=== PATIENT | male | born 1965 | race Caucasian/White ===

== ENCOUNTER 2022-07-30 09:06 | Emergency (ER) | payer OTHER, SELFPAY ==
[2022-07-30] VITALS (7 sets, daily range): BP systolic 152–187; BP diastolic 95–107; PULSE 60–80; RESP 13–23; TEMP 36.4; O2SAT 98–100
--- NOTE | ~2022-07-30 | CT_ITS ---
EXAMINATION: CTA chest PE protocol DATE: 07/30/2022 11:46 INDICATION: Left chest pain. TECHNIQUE: Computed tomography angiography (CTA) of the chest was performed with 100 mL Omnipaque-350 intravenous contrast timed to evaluate the pulmonary arteries. Coronal maximum intensity projection 3D-reconstructions were created by the technologist. Automated exposure control and iterative reconst ruction technique were employed. The dose-length product was 398.36 mGy-cm. COMPARISON: Chest 2 views 07/30/2022 FINDINGS: There is mild scarring at the lung apices. There is minimal atelectasis bilaterally. A calc ified right lung nodule is consistent with old granulomatous disease. No pleural effusion. The heart size is normal. No pericardial effusion. There is no pulmonary embolus. There is mild thoracic spondy losis. IMPRESSION: 1. No pulmonary embolus. Reviewed, dictated and finalized at location A. MECHANISM MAKER IMPRESSION: 1. No pulmonary embolus.
--- NOTE | ~2022-07-30 | XR_ITS ---
EXAMINATION: XR chest 2V DATE: 07/30/2022 09:55 INDICATION: Chest pain and dizziness TECHNIQUE: PA and lateral views of the chest are obtained. COMPARISON: None available FINDINGS: The lungs are free of acute opacities. No pleural effusion or pneumothorax. The cardiomedia stinal silhouette is normal. There is mild thoracic spondylosis. IMPRESSION: 1. No acute cardiopulmonary abnormality. Reviewed, dictated and finalized at location A. TRIMMER
--- NOTE | ~2022-07-30 | CT_ITS ---
EXAMINATION: CT brain wo con DATE: 07/30/2022 11:41 INDICATION: Dizziness. TECHNIQUE: Computed tomography (CT) of the head was performed without intravenous contrast. The mA wa s adjusted according to patient size. Iterative reconstruction technique was employed. The dose-lengt h product was 605.33 mGy-cm. COMPARISON: None FINDINGS: There is no intracranial hemorrhage, acute infarction, or abnormal intracranial mass lesion . The ventricles are normal in size. The orbits are normal. There is mild mucosal thickening in the e thmoid sinuses. The mastoid air cells are normal. IMPRESSION: 1. Normal brain. Reviewed, dictated and finalized at location A. ER UP IMPRESSION: 1. Normal brain.
--- NOTE | 2022-07-30 09:12 | ECG_ITS ---
Measurements Intervals [place] Rate: 66 P: 46 AR: 171 QRS: 34 QRSD: 90 T: 56 QT: 394 QTc: 414 Interpretive Statements SINUS RHYTHM POOR R-WAVE PROGRESSION NO PREVIOUS ECG AVAILABLE FOR COMPARISON Electronically Signed On 07-30-2022 13:21:37 STAND GRINDER by Mack Weber M.D.
[2022-07-30 09:32] LABS: Basophils Absolute Auto 0.1 K/mm3 (0.0-0.1); Basophils Percent Auto 0.8 % (0.2-1.2); Eosinophils Percent Auto 0.5 % (0-4.4); Hematocrit 49.6 % (42.0-52.0); Hemoglobin 16.2 g/dL (14.0-18.0); Immature Granulocyte Absolute 0.02 K/mm3 (0.00-0.031); Immature Granulocyte Percent A 0.3 % (0-0.5); Lymphocytes Absolute Auto 1.18 K/mm3 (0.9-3.2); Lymphocytes Percent Auto 16.2 % (18.3-44.2); Mean Corpuscular HGB Conc 32.7 g/dl (32-36); Mean Corpuscular Hemoglobin 30.9 pg (26-34); Mean Corpuscular Volume 94.5 fl (80-100); Mean Platelet Volume 8.5 fl (7.4-10.4); Monocytes Absolute Auto 0.5 K/mm3 (0.1-0.6); Monocytes Percent Auto 7.4 % (2.6-8.5); Neutrophils Absolute Auto 5.5 K/mm3 (1.3-6.7); Neutrophils Percent Auto 74.8 % (45.5-73.1); Platelet Count Result 299 k/mm3 (150-375); Red Blood Count 5.25 M/mm3 (4.6-6.20); Red Cell Distribution Width 12.8 % (11.5-14.5); White Blood Count 7.3 K/mm3 (4.5-10.0)
[2022-07-30 09:41] LABS: Lipase 113 U/L (23-300)
[2022-07-30 09:44] LABS: Prothrombin Time 12.6 Seconds (11.1-14.7)
[2022-07-30 09:45] LABS: Partial Thromboplastin Time 29.1 SECONDS (22.3-36.8)
[2022-07-30 09:47] LABS: Alanine Aminotransferase 18 U/L (6-50); Albumin Level 4.8 g/dL (3.5-5.1); Alkaline Phosphatase 92 U/L (38-126); Anion Gap 7 mmol/L (8-16); Aspartate Amino Transferase 23 U/L (17-59); Bilirubin,Total 0.8 mg/dL (0.2-1.3); Blood Urea Nitrogen 10 mg/dL (9-20); Calcium 9.3 mg/dL (8.4-10.2); Carbon Dioxide 26 mmol/L (22-30); Chloride 102 mmol/L (98-107); Estimated CRCL calculation 79 ml/min; Estimated Glomerular Filt Rate > 60; Glucose 113 mg/dL (65-110); Potassium 3.9 mmol/L (3.4-5.0); Sodium 135 mmol/L (137-145)
--- NOTE | 2022-07-30 09:54 | PC.NURSE ---
Pt in XRAY at this time, radiology will bring to H2 following imaging.
[2022-07-30 09:57] LABS: Troponin I < 0.012 ng/mL (0.000-0.034)
[2022-07-30] MEDS: Please add drug allergy info to patient profile. 1 EACH XX (10:07)
[2022-07-30] MEDS: ASPIRIN 81 MG CHEWABLE TABLET 324 MG PO (10:07)
--- NOTE | 2022-07-30 11:35 | ED.GENADULT ---
HPI - General Adult General Chief complaint: Dizziness Stated complaint: DIZZINESS Time Seen by Provider: 07/30/22 09:25 History of Present Illness HPI narrative: 56-year-old male presented to the emergency department for evaluation of multiple complaints including headache dizziness near syncope and left-sided chest pain. Patient states that he does have a prior history of essential tremor and bipolar disorder. Patient states he has not been taking his meds. 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 Patient denied any diaphoresis or shortness of breath with this. Patient states the symptoms lasted a few hours and resolved. Patient has not had any recurrent chest pain. Patient has had a prior stress test but denies any history of coronary disease. Patient also states he has had multiple near syncopal episodes today Related Data Allergies Allergy/AdvReac Type Severity Reaction Status Date / Time No Known Allergies Allergy Verified 07/30/22 10:06 Review of Systems Review of Systems: CONSTITUTIONAL: Denies fever, chills, or sweats. EYES: Denies visual changes, redness, or discharge. ENT: Denies rhinorrhea, congestion, sore throat, or otalgia. CARDIOVASCULAR: See HPI RESPIRATORY: Denies cough or dyspnea. GASTROINTESTINAL: Denies abdominal pain, nausea, vomiting, or diarrhea. GENITOURINARY: Denies dysuria or hematuria. SKIN: Denies rash or itching. MUSCULOSKELETAL: Denies back pain, joint pain, or myalgia. NEUROLOGIC: See HPI Exam Narrative: APPEARANCE: Well appearing, no pain, no distress, well-nourished. HEAD: normocephalic, atraumatic. EYES: PERRLA/EOMI, conjunctivae clear. NOSE: Normal no drainage NECK: Supple. No adenopathy, no masses. RESPIRATORY: Airway patent, respirations nonlabored. Clear to auscultation bilaterally, no rales, rhonchi, wheezing. CARDIOVASCULAR: Regular rate and rhythm without murmurs rubs or gallops. ABDOMINAL: Soft, nontender, nondistended, normal bowel sounds MUSCULOSKELETAL: Moves all extremities. Strength/ROM intact, No edema, No calf tenderness. NEURO: Alert. Cranial nerves II through XII intact. Grossly intact SKIN: Warm, dry. Normal Color Course Course Emergency Course: Patient's EKG showed normal sinus rhythm with no evidence acute STEMI. Patient's vital signs were within normal limits. Patient is afebrile with no leukocytosis. Patient had negative serial troponins. Patient's CMP was similar to his baseline. Head CT showed no acute intracranial normality and PE study showed no evidence of pulmonary [place]. Patient does feel improved at this time. Patient has not had any chest pain since yesterday. Patient denies any current lightheaded or dizziness or headache. Patient's heart score is low enough that he can be discharged to home with outpatient follow-up. This was discussed with both the patient and family member. They are educated on reasons to return to the emergency room. All questions concerns were addressed. Vital Signs Vital signs: Vital Signs Temperature 97.6 F 07/30/22 09:24 Pulse Rate 66 07/30/22 09:24 Respiratory Rate 14 07/30/22 09:24 Blood Pressure 187/107 H 07/30/22 09:24 Pulse Oximetry 100 07/30/22 09:24 Oxygen Delivery Room Air 07/30/22 09:24 Temperature 97.6 F 07/30/22 09:24 Pulse Rate 80 07/30/22 13:32 Respiratory Rate 23 H 07/30/22 13:32 Blood Pressure 152/95 H 07/30/22 13:32 Pulse Oximetry 99 07/30/22 13:32 Oxygen Delivery Room Air 07/30/22 09:24 Medical Decision Making Vital Signs Vital Signs: Vital Signs Temperature 97.6 F 07/30/22 09:24 Pulse Rate 66 07/30/22 09:24 Respiratory Rate 14 07/30/22 09:24 Blood Pressure 187/107 H 07/30/22 09:24 Pulse Oximetry 100 07/30/22 09:24 Oxygen Delivery Room Air 07/30/22 09:24 Temperature 97.6 F 07/30/22 09:24 Pulse Rate 80 07/30/22 13:32
[2022-07-30 12:51] LABS: Troponin I < 0.012 ng/mL (0.000-0.034)
== END 2022-07-30 13:33 | disposition home or self-care (01) ==
PROVIDERS: Emergency Medicine; Emergency Provider Emergency Medicine
DX: R51.9 Headache, unspecified (principal); R42 Dizziness and giddiness; R07.9 Chest pain, unspecified
CPT/HCPCS: 36415; 70450; 71046; 71275; 80053; 83690; 84484; 85025; 85610; 85730; 93005; 99284; A9270; Q9967

== ENCOUNTER 2025-05-26 19:44 | Inpatient (IN) | payer OTHER, SELFPAY ==
[2025-05-26] VITALS (8 sets, daily range): BP systolic 109–158; BP diastolic 74–97; PULSE 91–217; RESP 23; TEMP 36.4; O2SAT 65–100; BMI 28.2
--- NOTE | ~2025-05-26 | XR_ITS ---
EXAMINATION: XR chest 1V portable COMPARISON: No comparisons available. HISTORY: chest pain FINDINGS: The lungs are clear, no effusion. No pneumothorax. Heart is normal size. Mediastinal and hilar contours are within normal limits. Bony thorax no acute abnormality. Miscellaneous: None Impression: No acute cardiopulmonary abnormality. Reviewed, dictated and finalized at location P. Impression: No acute cardiopulmonary abnormality.
--- NOTE | 2025-05-26 19:46 | ECG_ITS ---
Test Date: 2025-05-26 19:47:37 Measurements Intervals [place] Rate: 82 P: 68 FL: 181 QRS: 74 QRSD: 94 T: 36 QT: 383 QTc: 450 Interpretive Statements SINUS RHYTHM WITH SINUS ARRHYTHMIA POSSIBLE LEFT ATRIAL ENLARGEMENT ANTEROSEPTAL ST ELEVATION MYOCARDIAL INJURY- ACUTE HIGH LATERAL ST ELEVATION MYOCARDIAL INJURY- ACUTE BASELINE ARTIFACT- I, II, III, AVR, AVL, AV ABNORMAL ECG No previous ECG available for comparison Electronically Signed On 05-27-2025 08:38:48 CDT by Everardo Bentley D.O.
[2025-05-26 20:05] LABS: Hematocrit 52.1 % (42.0-52.0); Hemoglobin 16.7 g/dL (14.0-18.0); Immature Granulocyte Percent A 0.3 % (0-0.5); Lymphocytes Absolute Auto 5.21 K/mm3 (0.9-3.2); Mean Corpuscular HGB Conc 32.1 g/dl (32-36); Mean Corpuscular Hemoglobin 30.9 pg (26-34); Mean Corpuscular Volume 96.5 fl (80-100); Nucleated Red Blood Cells Absolute Auto 0.000 K/mm3 (0.0-0.012); Nucleated Red Blood Cells Perc 0.0 % (0.0-0.2); Platelet Count Result 320 k/mm3 (150-375); Red Blood Count 5.40 M/mm3 (4.6-6.20); White Blood Count 14.6 K/mm3 (4.5-10.0)
--- NOTE | 2025-05-26 20:05 | ED_ITS ---
HPI - Chest Pain General Chief Complaint: Chest Pain Stated Complaint: chest pain Source: patient and EMS Mode of arrival: EMS Limitations: no limitations History of Present Illness HPI narrative: Patient is a 59-year-old male presents to the emergency department complaining of chest pain, started about half are 45 minutes prior to arrival, middle his chest, feels a throbbing sensation. Denies any allergies. Denies any history of coronary intervention. Denies blood thinners. History limited secondary to clinical condition walk as patient lost a pulse during examination. EMS called a code STEMI in the field, Cardiology was contacted, reviewed EKGs, requesting repeat EKG upon arrival. Related Data Home Medications ?Medication ?Instructions ?Recorded ?Confirmed ?Last Taken ?Type No Home Medications 05/26/25 05/26/25 U nknown History Allergies Allergy/AdvReac Type Severity Reaction Status Date / Time No Known Allergies Allergy Verified 07/30/22 10:06 Review of Systems 2 Review of Systems: ROS unobtainable: Yes unobtainable due to medical condition [facility] Past Medical History Medical History (Updated 05/27/25 @ 10:22 by Moi Sanford MD) Hyperlipidemia LDL goal <70 Hypertension Family History Family History (Updated 05/26/25 @ 23:06 by Annalisa Rangel RN) Father Pancreatic cancer Mother Alzheimer dementia Hypertension Mother Arthritis Sibling Oral cancer Social History Social History Smoking status: Current every day smoker Tobacco type: smokeless tobacco Second hand tobacco smoke exposure: No Alcohol intake: former Substance use: never Lack of Transportation: No Lack of Food: Never True Current Housing: I Have Housing Concerned About Future Housing: No Difficulty Paying Gas/Electric Bills: No Difficulty Paying for Meds: No Currently Unemployed: No Education: Associate Degree Difficulty w/ Childcare or Family Care: No Spiritual care concerns: No Exam 2 Narrative: CONST: Moderate acute distress. HENMT: Head is normocephalic and atraumatic. Tacky mucous membranes. No posterior oropharynx erythema. EYES: No scleral icterus. No conjunctival injection or pallor. PERRL. NECK: No meningeal signs. RESP: Able to speak in full sentences. Normal respiratory effort. CTAB. CARDIO: Regular rate. Regular rhythm. 2+ DP and radial pulses bilaterally. GI: Nondistended. No tenderness to palpation. Soft. : No CVA tenderness to palpation. SKIN: Diaphoretic. NEURO: Oriented x3. Moves all extremities. EXTREM/MSK/BACK: No pedal edema. Course Vital Signs Vital signs: Vital Signs Temperature 97.6 F 05/26/25 19:44 Pulse Rate 190 H 05/26/25 19:44 Respiratory Rate 23 H 05/26/25 19:44 Blood Pressure 158/95 H 05/26/25 19:44 Pulse Oximetry 95 05/26/25 19:44 Oxygen Delivery Nasal Cannula 05/26/25 19:44 Oxygen Flow Rate 2 05/26/25 19:44 Temperature 98.1 F 05/27/25 07:00 Pulse Rate 87 05/27/25 16:00 Respiratory Rate 18 05/27/25 16:00 Blood Pressure 141/37 H 05/27/25 16:00 Pulse Oximetry 93 05/27/25 16:00 Oxygen Delivery Room Air 05/27/25 16:00 Oxygen Flow Rate 2 05/26/25 19:44 Procedures Other Procedure Procedure 1: Other Procedure: Cardioversion Performed by: Self Indication: Ventricular tachycardia with a pulse Consent: Emergent Electrodes were placed in an Anterior and lateral fashion. Synchronized cardioversion was performed at 200 joules with successful conversion to sinus rhythm. Patient tolerated the procedure well with no apparent complications. MDM - Chest Pain MDM Narrative Medical decision making narrative: Patient presents with the above complaint. Initial vitals are remarkable for no significant abnormalities. Physical examination as noted above. Differential diagnosis includes was not limited to: STEMI, ACS, dysrhythmia, pulmonary embolism, aortic dissection, pericarditis, myocarditis. On arrival patient's EKG shows dynamic changes with ST elevation worsening in the anterior leads. Cardiology on-call informed of this, photo lab manager activated. While obtaining history patient had a cardiac arrest with VFib on the monitor, CPR was initiated immediately, defibrillation performed and patient had ROSC. After ROSC patient had rhythm on the monitor that looked like ventricular tachycardia with rate of 200 and wide QRS complex, synchronized cardioversion performed and patient cardioverted to what appeared to be sinus tachycardia on the monitor. Patient alert and oriented, answering all questions. Patient given amiodarone 200 mg, heparin 5000 units, nitro paste and nitroglycerin drip, oxygen adminstered via nasal cannula, aspirin was administered by EMS. CRITICAL CARE ADDENDUM: Indication: STEMI, Cardiac Arrest Time type: Intermittent I provided a total of 55 minutes of critical care excluding separately billable procedures. This includes time w/ EMS, initial bedside evaluation, review of testing done while under my care, discussion w/ the family, nurses, behavioral health consultant and guiding the patient?s care while in the emergency department. Approximate time distribution: 15 minutes ? Initial evaluation, d/w involved parties, attempting to gather old records. 10 minutes ? Documenting medical record 10 minutes ? Review of results (EKGs, imaging) 10 minutes ? Serial repeat bedside evaluation 10 minutes ? Discussing case with multiple providers Please see main chart for details. Excludes separately billable procedures. Lab Data 05/27/25 04:10 05/27/25 04:10 Labs: Lab Results 05/26/25 05/26/25 05/26/25 Range/Units 19:59 19:59 20:00 WBC 14.6 H (4.5-10.0) K/mm3 RBC 5.40 (4.6-6.20) M/mm3 Hgb 16.7 (14.0-18.0) g/dL Hct 52.1 H (42.0-52.0) % MCV 96.5 (80-100) fl MCH 30.9 (26-34) pg MCHC 32.1 (32-36) g/dl RDW 13.0 (11.5-14.5) % Plt Count 320 (150-375) k/mm3 MPV 8.8 (7.4-10.4) fl Immature Gran % (Auto) 0.3 (0-0.5) % Neut % (Auto) 55.2 (45.5-73.1) % Lymph % (Auto) 35.7 (18.3-44.2) % [place] % (Auto) 7.4 (2.6-8.5) % Eos % (Auto) 0.5 (0-4.4) % Baso % (Auto) 0.9 (0.2-1.2) % Lymph # (Auto) 5.21 H (0.9-3.2) K/mm3 [place] # (Auto) 1.1 H (0.1-0.6) K/mm3 Eos # (Auto) 0.1 (0-0.3) K/mm3 Baso # (Auto) 0.1 (0.0-0.1) K/mm3 Abs Immat Gran (auto) 0.05 H (0.00-0.031) K/mm3 Absolute Neuts (auto) 8.1 H (1.3-6.7) K/mm3 Absolute Nucleated RBC 0.000 (0.0-0.012) K/mm3 Nucleated RBC % 0.0 (0.0-0.2) % PT 13.5 (11.1-14.7) Seconds INR 1.0 APTT 21.6 L (22.3-36.8) Seconds Activ Coag Time Kaolin (74-137) SEC Sodium 141 (137-145) mmol/L Potassium 3.3 L (3.4-5.0) mmol/L Chloride 105 (98-107) mmol/L Carbon Dioxide 14 L (22-30) mmol/L Anion Gap 22 H (4-12) mmol/L BUN 10 (9-20) mg/dL Creatinine 1.25 (0.7-1.3) mg/dL Estim Creat Clear Calc 62 ml/min Estimated GFR 59 (59 - ) Glucose 161 H (65-110) mg/dL Calcium 10.2 (8.4-10.2) mg/dL Total Bilirubin 0.7 (0.2-1.3) mg/dL AST 65 H (17-59) U/L ALT 62 H (6-50) U/L Alkaline Phosphatase 113 (38-126) U/L Troponin I 0.018 Cancelled (0.000-0.034) ng/mL NT-Pro-B Natriuret Pep 22 (19.9-100) pg/mL Total Protein 7.8 (6.3-8.2) g/dL Albumin 4.8 (3.5-5.1) g/dL Triglycerides 132 (<150) mg/dL Cholesterol 251 H (0-200) mg/dL LDL Cholesterol Direct 155 mg/dL HDL Direct 57 mg/dL Nasal MRSA (PCR) Not detected (NOT DETECTE) Blood Type O Positive Antibody Screen Negative 05/26/25 05/26/25 Range/Units 21:17 21:35 WBC (4.5-10.0) K/mm3 RBC (4.6-6.20) M/mm3 Hgb (14.0-18.0) g/dL Hct (42.0-52.0) % MCV (80-100) fl MCH (26-34) pg MCHC (32-36) g/dl RDW (11.5-14.5) % Plt Count (150-375) k/mm3 MPV (7.4-10.4) fl Immature Gran % (Auto) (0-0.5) % Neut % (Auto) (45.5-73.1) % Lymph % (Auto) (18.3-44.2) % [place] % (Auto) (2.6-8.5) % Eos % (Auto) (0-4.4) % Baso % (Auto) (0.2-1.2) % Lymph # (Auto) (0.9-3.2) K/mm3 [place] # (Auto) (0.1-0.6) K/mm3 Eos # (Auto) (0-0.3) K/mm3 Baso # (Auto) (0.0-0.1) K/mm3 Abs Immat Gran (auto) (0.00-0.031) K/mm3 Absolute Neuts (auto) (1.3-6.7) K/mm3 Absolute Nucleated RBC (0.0-0.012) K/mm3 Nucleated RBC % (0.0-0.2) % PT (11.1-14.7) Seconds INR APTT (22.3-36.8) Seconds Activ Coag Time Kaolin 199 H 239 H (74-137) SEC Sodium (137-145) mmol/L Potassium (3.4-5.0) mmol/L Chloride (98-107) mmol/L Carbon Dioxide (22-30) mmol/L Anion Gap (4-12) mmol/L BUN (9-20) mg/dL Creatinine (0.7-1.3) mg/dL Estim Creat Clear Calc ml/min Estimated GFR (59 - ) Glucose (65-110) mg/dL Calcium (8.4-10.2) mg/dL Total Bilirubin (0.2-1.3) mg/dL AST (17-59) U/L ALT (6-50) U/L Alkaline Phosphatase (38-126) U/L Troponin I (0.000-0.034) ng/mL NT-Pro-B Natriuret Pep (19.9-100) pg/mL Total Protein (6.3-8.2) g/dL Albumin (3.5-5.1) g/dL Triglycerides (<150) mg/dL Cholesterol (0-200) mg/dL LDL Cholesterol Direct mg/dL HDL Direct mg/dL Nasal MRSA (PCR) (NOT DETECTE) Blood Type Antibody Screen Critical Care Time Critical Care Time Critical Care Time: Yes Total Critical Care Time: 55 Discharge Plan Discharge Clinical Impression: Cardiac arrest, V-tach, Ventricular fibrillation ST elevation (STEMI) myocardial infarction Qualifiers: Involved coronary artery: unspecified coronary artery Qualified Code(s): I21.3 - ST elevation (STEMI) myocardial infarction of unspecified site Patient Disposition: Still a Patient Condition: Critical Time of Disposition: 20:28
[2025-05-26 20:19] LABS: Alanine Aminotransferase 62 U/L (6-50); Albumin Level 4.8 g/dL (3.5-5.1); Alkaline Phosphatase 113 U/L (38-126); Anion Gap 22 mmol/L (4-12); Aspartate Amino Transferase 65 U/L (17-59); Bilirubin,Total 0.7 mg/dL (0.2-1.3); Blood Urea Nitrogen 10 mg/dL (9-20); Calcium 10.2 mg/dL (8.4-10.2); Carbon Dioxide 14 mmol/L (22-30); Chloride 105 mmol/L (98-107); Cholesterol 251 mg/dL (0-200); Estimated CRCL calculation 62 ml/min; Estimated Glomerular Filt Rate 59; Glucose 161 mg/dL (65-110); HDL Direct 57 mg/dL; Potassium 3.3 mmol/L (3.4-5.0); Sodium 141 mmol/L (137-145); Total Protein 7.8 g/dL (6.3-8.2); Triglycerides 132 mg/dL (<150)
[2025-05-26 20:22] LABS: INR 1.0; Prothrombin Time 13.5 Seconds (11.1-14.7)
--- NOTE | 2025-05-26 20:22 | PC.NURSE ---
while pt was being triaged in room, pt went unresponsive and cardiac arrest from being fully a+0 x4 1947- nitro paste applied to left chest 1948 - cpr started 1949 - shocked advised and delivered, cpr resumed 1950 - epi given 1950 - ROS returned 1951 - V.S. 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
[2025-05-26 20:23] LABS: Partial Thromboplastin Time 21.6 Seconds (22.3-36.8)
[2025-05-26 20:31] LABS: Troponin I 0.018 ng/mL (0.000-0.034)
--- NOTE | 2025-05-26 20:32 | PM.IMHP ---
H&P: HPI History of Present Illness Date/Time: 05/26/25 20:32 Chief Complaint: Chest pain Narrative: 59-year-old man who has been lifting boxes valve hour ago complain of chest pain for which EMS transfer for acute anterior STEMI. While in the emergency room being evaluated he experienced the VT cardiac arrest for which he was resuscitated with intact neurological function. He is currently still experiencing chest pain on nitro drip and heparin. He has also been started on amiodarone Review of Systems Review of Systems: All systems reviewed & are unremarkable except as noted in HPI and below Meds Home Medications and Allergies Allergies Allergy/AdvReac Type Severity Reaction Status Date / Time No Known Allergies Allergy Verified 07/30/22 10:06 Vital Signs Vital Signs - 24 hr 05/26/25 19:44 05/26/25 20:09 Temperature 36.4 C Pulse Rate 190 H 91 Respiratory Rate 23 H Blood Pressure 158/95 H Pulse Oximetry 95 Oxygen Delivery Nasal Cannula Oxygen Flow Rate 2 Exam Const: General: uncomfortable HENMT: Mouth: Yes moist mucous membranes Eyes: EOM: EOMs intact bilaterally Neck: Neck: no JVD Resp: Effort & Inspection: normal respiratory effort Cardio: Rate: regular rate H&P: Results Labs Labs: Short CBC 05/26/25 Range/Units 19:59 WBC 14.6 H (4.5-10.0) K/mm3 Hgb 16.7 (14.0-18.0) g/dL Hct 52.1 H (42.0-52.0) % Plt Count 320 (150-375) k/mm3 BMP 05/26/25 19:59 Sodium 141 Potassium 3.3 L Chloride 105 Carbon Dioxide 14 L BUN 10 Creatinine 1.25 Glucose 161 H Calcium 10.2 Cardiac Enzymes 05/26/25 Range/Units 19:59 Troponin I 0.018 (0.000-0.034) ng/mL Liver Function 05/26/25 Range/Units 19:59 Total Bilirubin 0.7 (0.2-1.3) mg/dL AST 65 H (17-59) U/L ALT 62 H (6-50) U/L Alkaline Phosphatase 113 (38-126) U/L Albumin 4.8 (3.5-5.1) g/dL Assessment and Plan Assessment and plan (1) ST elevation (STEMI) myocardial infarction: Qualifiers: Involved coronary artery: unspecified coronary artery Qualified Code(s): I21.3 - ST elevation (STEMI) myocardial infarction of unspecified site Code(s): I21.3 - ST elevation (STEMI) myocardial infarction of unspecified site Status: Acute Plan Anterior STEMI -left heart catheterization with PCI emergently
--- NOTE | 2025-05-26 20:34 | P.SEDATION_ITS ---
Moderate Sedation Note-Pt Data Patient Data Allergies Allergy/AdvReac Type Severity Reaction Status Date / Time No Known Allergies Allergy Verified 07/30/22 10:06 Sedation/Anesthesia: No previous sedation/anesthesia problems (including family history). Mod Sed Physical Exam Physical Exam Pre Procedural Exam: Normal: Heart Rate Hours since solid foods: 3 Hours since liquid intake: 3 Mallampati Classification: class II Internal Medicine - PN: Obj Da Vital Signs Vital Signs: Vital Signs - 24 hr 05/26/25 19:44 05/26/25 20:09 Temperature 36.4 C Pulse Rate 190 H 91 Respiratory Rate 23 H Blood Pressure 158/95 H Pulse Oximetry 95 Oxygen Delivery Nasal Cannula Oxygen Flow Rate 2 Labs 05/26/25 19:59 05/26/25 19:59 Labs: Laboratory Results - last 24 hr 05/26/25 19:59 WBC 14.6 H RBC 5.40 Hgb 16.7 Hct 52.1 H MCV 96.5 MCH 30.9 MCHC 32.1 RDW 13.0 Plt Count 320 MPV 8.8 Immature Gran % (Auto) 0.3 Neut % (Auto) 55.2 Lymph % (Auto) 35.7 [place] % (Auto) 7.4 Eos % (Auto) 0.5 Baso % (Auto) 0.9 Lymph # (Auto) 5.21 H [place] # (Auto) 1.1 H Eos # (Auto) 0.1 Baso # (Auto) 0.1 Abs Immat Gran (auto) 0.05 H Absolute Neuts (auto) 8.1 H Absolute Nucleated RBC 0.000 Nucleated RBC % 0.0 PT 13.5 INR 1.0 APTT 21.6 L Sodium 141 Potassium 3.3 L Chloride 105 Carbon Dioxide 14 L Anion Gap 22 H BUN 10 Creatinine 1.25 Estim Creat Clear Calc 62 Estimated GFR 59 Glucose 161 H Calcium 10.2 Total Bilirubin 0.7 AST 65 H ALT 62 H Alkaline Phosphatase 113 Troponin I 0.018 Total Protein 7.8 Albumin 4.8 Triglycerides 132 Cholesterol 251 H LDL Cholesterol Direct 155 HDL Direct 57 ASA Classification/Sedation ASA Classification/Sedation ASA Class: IV Emergent: Yes Risks: Risks, benefits and alternatives explained and patient/family accepted plan for sedation. Patient re-evaluated immediately prior to sedation.
[2025-05-26 21:07] LABS: NT Pro B Type Natriuretic Pept 22 pg/mL (19.9-100)
[2025-05-26 21:16] LABS: MRSA (PCR) NOT DETECTED (NOT DETECTE)
--- NOTE | 2025-05-26 21:36 | WPDCARDPROC ---
Cardiac Cath Procedure Note Date of procedure:: 05/26/25 Performing physician:: CATHETERIZATION LABORATORY REPORT Procedure Date: 05/26/2025 Referring Physician: Dr. Núñez Anesthesia: Versed and Fentanyl were ordered and given in my presence at 2032, procedure ended at 2128. Supervision of nurse, Oskar Ramirez monitored moderate sedation with 2mg Versed and 200mcg Fentanyl was provided for 56 minutes. Pre-op Diagnosis: Anterior STEMI Post-op Diagnosis: Anterior STEMI Procedure(s): Left heart catheterization with coronary angiography Access Site: Right common femoral artery Brief History and Clinical Indications: 59-year-old man who denies significant past medical history presented with chest pain found to have anterior STEMI complicated by VF arrest status post ROSC with 1 round of CPR and defibrillation was emergently brought to the cardiac catheterization lab for primary PCI. All risks, benefits and alternatives to left heart catheterization with or without percutaneous coronary intervention was discussed at length with the patient. Risk of complications including but not limited to bleeding, infection, arrhythmia, stroke, worsening kidney function, blood loss, groin hematoma, limb loss, emergency coronary artery bypass grafting, and even were discussed with the patient and all questions were answered. The patient understood and wished to proceed. Time out called, patient name, date of , medical record number, allergies, procedure performed, identify Systems Engineer, patient and staff member concurred with accurate data, procedure carried on. Findings: LEFT HEART CATHETERIZATION FINDINGS: 1. Left main: The left main coronary artery is widely patent without any significant obstructive disease. 2. Left anterior descending: The LAD is occluded in its midbody at the bifurcation of a diagonal branch. 3. Left circumflex: The left circumflex artery and the main marginal branches have mild luminal irregularities without any significant obstructive angiographic disease. 4. Right coronary artery: The RCA has mild luminal irregularities without any significant obstructive angiographic disease. The RCA is the dominant vessel. 5. Left ventricle: A. End-diastolic pressure 22 mmHg. B. LV gram deferred. C. No significant gradient across aortic valve on catheter pullback. 6. Opening AO pressure 154/102 and closing AO pressure 144/88 Description of Procedure: Emergent consent obtained in the research laboratory specialist. Prepped and draped in usual sterile fashion. 2% lidocaine in right groin area. Micropuncture needle used to access right common femoral artery with Seldinger technique under ultrasound and fluoroscopic guidance. J wire advanced, micropuncture cannula placed and exchanged for 6F sheath. Procedure Description for PCI: Heparin was used for anticoagulation (ACT maintained above 250) Patient loaded with heparin at 70 units/kg. 6F EBU 4.0 guide catheter was used to intubate the LMCA. 0.014 Runthrough coronary wire was passed in to the left circumflex. A second Runthrough was negotiated into the distal LAD. The lesion was pre-dilated with a 2.5 x 15mm balloon and repeat angiogram demonstrated more intracoronary thrombus. A Penumbra Cat RX thrombectomy device was used with resolution of thrombus. An IVUS catheter was then passed into the LAD to obtain vessel sizing followed by deployment of overlapping 4.5 x 30mm and 5.0 x 18mm [place] WENDI; post dilated with a 5.0 x 15mm NC to high eileen with excellent angiographic results. IC cardene 200mcg and IC nitroglycerin 300mcg was delivered for some slow flow. All intracoronary equipment was then removed under fluoroscopy and final angiogram demonstrated excellent results. Pre-procedure - MICHAEL 0 flow Post-procedure - MICHAEL 3 flow No angiographic complications identified. Assessment: Successful IVUS guided PCI to the mid LAD with thrombectomy and overlapping 4.5 x 30mm and 5.0 x 18mm [place] WENDI with excellent angiographic results. Post Operative Condition: Stable No significant blood loss Disposition: ICU Plan: DAPT for 1 year followed by ASA indefinitely. Continue aggressive medical therapy and risk factor modification. YAMILE Heraclio Ortega Interventional Cardiology
[2025-05-26] MEDS: SODIUM CHLORIDE 0.9% IV 1,000 ML 125 ML IV CONT (22:35)
[2025-05-26] MEDS: ATORVASTATIN 40 MG TABLET 80 MG PO (22:38)
--- NOTE | 2025-05-26 22:43 | ADMGEN ---
This patient, Jarek Fenton, was admitted to Intensive Care Unit-10 at 2149 from the [facility]. Patient/family oriented to hospital policies and general routines including ID bracelet, bed and alarms, visiting hours, pain management, procedures, bathroom and other care routines, personal items, smoking policy, room service/diet, and visiting hours. Information on how to activate the Rapid Response Team has been discussed. Patient/Family are encouraged to report perceived risks to care and to ask questions if they do not understand what they are told or what they should do.
[2025-05-27] VITALS (18 sets, daily range): BP systolic 112–155; BP diastolic 37–116; PULSE 83–110; RESP 8–31; TEMP 36.4–36.8; O2SAT 90–99
--- NOTE | 2025-05-27 | ECHO_ITS ---
Patient Info Name: Jarek Fenton Age: 59 years : 1965 Gender: Male Ht: 72 in Wt: 197 lbs BSA: 2.14 m2 HR: 83 bpm BP: 142 / 92 mmHg Heart Rhythm: Sinus Rhythm Technical Quality: Good Exam Date: 05/27/2025 8:47 AM Patient Status: I Admit Date: 05/26/2025 Exam Type: CA echo dop color flow w con Complete two-dimensional, color flow and Doppler transthoracic echocardiogram is performed with contrast to opacify the left ventricle and to improve the deliniation of the left ventricle endocardial borders. Staff Referring Physician: Rashid Núñez Manager Mortgage: Emma Ferrer Attending Provider: Heraclio Ortega Contrast/Agitated Saline Contrast/Ag. Saline: Definity Amount: 2.00 ml Summary 1. Left ventricular chamber dimension is mildly enlarged. 2. Left ventricular systolic function is severely reduced, estimated at 25-30. 3. There is no increased left ventricular wall thickness. 4. The left ventricular diastolic function is grade I diastolic dysfunction. 5. The apex, mid inferoseptal, mid anteroseptal, and mid inferolateral wall are akinetic. 6. The mid anterior wall, and mid anterolateral wall are hypokinetic. 7. There is mild aortic valve regurgitation. 8. There is mild mitral valve regurgitation. 9. There is mild tricuspid valve regurgitation. 10. There is mild pulmonic regurgitation. 11. There is small pericardial effusion. Left Ventricle Left ventricular chamber dimension is mildly enlarged. Left ventricular systolic function is severely reduced, estimated at 25-30. There is no increased left ventricular wall thickness. The left ventricular diastolic function is grade I diastolic dysfunction. The apex, mid inferoseptal, mid anteroseptal, and mid inferolateral wall are akinetic. The mid anterior wall, and mid anterolateral wall are hypokinetic. All other lehman appear normal. Right Ventricle Right ventricular chamber dimension is normal. Right ventricular systolic function is normal. Left Atria Left atrial chamber dimension is normal. Right Atria Right atrial chamber dimension is normal. Atrial Septum Intact interatrial septum visualized by color flow imaging. Aortic Valve The aortic valve is trileaflet. There is mild aortic valve sclerosis. There is no aortic valve stenosis. There is mild aortic valve regurgitation. Pulmonic Valve The pulmonic valve is normal. There is no pulmonic valve stenosis. There is mild pulmonic regurgitation. Mitral Valve The mitral valve has normal leaflets. There is no mitral valve stenosis. There is mild mitral valve regurgitation. Tricuspid Valve The tricuspid valve leaflets are normal. There is no significant tricuspid valve stenosis. There is mild tricuspid valve regurgitation. No pulmonary hypertension, estimated pulmonary arterial systolic pressure is 33 mmHg. Pericardium/Pleural The pericardium appears normal. There is small pericardial effusion. Inferior Vena Cava Dilated inferior vena cava with <50% collapse upon inspiration consistent with elevated right atrial pressure, 15 mmHg. Aorta The aortic root size at the sinus of Valsalva is normal. Left Ventricular Outflow Tract Name Value Normal LVOT 2D LVOT Diameter 2.0 cm LVOT Doppler LVOT Peak Velocity 81 cm/s LVOT Peak Gradient 3 mmHg LVOT Mean Gradient 1 mmHg LVOT VTI 15 cm LVOT Stroke Volume 46 ml LVOT CO 3.8 l/min LVOT CI 1.8 l/min/m2 Pulmonic Valve Name Value Normal RVOT Doppler RVOT Peak Velocity 81 cm/s RVOT Peak Gradient 3 mmHg PV Doppler PV Peak Velocity 88 cm/s PV Peak Gradient 3 mmHg Tricuspid Valve Name Value Normal Estimated PAP/RSVP RA Pressure 15 mmHg <=5 PA Systolic Pressure 33 mmHg <36 Aortic Valve Name Value Normal AV Doppler AV Peak Velocity 101 cm/s AV Peak Gradient 4 mmHg AV Area (Cont Eq Macario) 2.4 cm2 AV DI (Macario) 0.80 AV Regurgitation 2D LVOT Area 3.1 cm2 Ventricles Name Value Normal LV Dimensions 2D/MM LVOT Diameter 2.0 cm LV Fractional Shortening/Ejection Fraction 2D/MM LV Diastolic Volume (4C MOD) 171 ml LV EF (4C MOD) 33 % LV Diastolic Volume (2C MOD) 137 ml LV EF (2C MOD) 32 % LV Diastolic Volume (BP MOD) 157 ml 62-150 LV Diastolic Volume Index (BP MOD) 73 ml/m2 34-74 LV Systolic Volume (BP MOD) 105 ml 21-61 LV Systolic Volume Index (BP MOD) 49 ml/m2 11-31 LV EF (BP MOD) 33 % 52-72 LV Diastolic Length (4C) 9.0 cm LV Systolic Length (4C) 7.9 cm LV Stroke Volume (4C MOD) 56 ml Atria Name Value Normal LA Dimensions LA Volume (4C A-L) 18 ml LA Volume (BP A-L) 27 ml RA Dimensions RA Systolic Major [place] Length (4C) 4.3 cm 2.1-2.7 RA Area (4C) 10.8 cm2 <=18.0 Wall Motion Scoring Wall Motion Scoring Index: 2.06 Report Signatures
[2025-05-27 04:15] LABS: Hematocrit 45.0 % (42.0-52.0); Hemoglobin 15.2 g/dL (14.0-18.0); Mean Corpuscular HGB Conc 33.8 g/dl (32-36); Mean Corpuscular Hemoglobin 31.2 pg (26-34); Mean Corpuscular Volume 92.4 fl (80-100); Platelet Count Result 276 k/mm3 (150-375); Red Blood Count 4.87 M/mm3 (4.6-6.20); White Blood Count 13.8 K/mm3 (4.5-10.0)
[2025-05-27 04:23] LABS: Hemoglobin A1C 5.4 % (<5.7)
[2025-05-27 04:37] LABS: Anion Gap 7 mmol/L (4-12); Blood Urea Nitrogen 10 mg/dL (9-20); Calcium 9.2 mg/dL (8.4-10.2); Carbon Dioxide 22 mmol/L (22-30); Chloride 106 mmol/L (98-107); Estimated CRCL calculation 79 ml/min; Estimated Glomerular Filt Rate > 60; Glucose 168 mg/dL (65-110); Magnesium 2.1 mg/dL (1.6-2.3); Potassium 4.1 mmol/L (3.4-5.0); Sodium 135 mmol/L (137-145)
[2025-05-27 04:52] LABS: Troponin I > 80.000 ng/mL (0.000-0.034)
--- NOTE | 2025-05-27 07:05 | ECG_ITS ---
Test Date: 2025-05-26 19:56:30 Measurements Intervals Wade Rate: 134 P: 0 TX: 0 QRS: 73 QRSD: 98 T: 41 QT: 289 QTc: 433 Interpretive Statements SINUS TACHYCARDIA WITH FREQUENT ATRIAL PREMATURE COMPLEXES ANTEROLATERAL ST ELEVATION MYOCARDIAL INFARCT- ACUTE HIGH LATERAL ST ELEVATION MYOCARIDAL INFARCT- ACUTE BASELINE WANDER- II, III, AVR, AVL, AVF, V1-V6 ABNORMAL ECG Compared to ECG 05/26/2025 19:47:37 HEART RATE HAS INCREASED Electronically Signed On 05-27-2025 08:40:49 CDT by Everardo Bentley D.O.
[2025-05-27] MEDS: ACETAMINOPHEN 500 MG TABLET 1000 MG PO (08:03)
[2025-05-27] MEDS: ASPIRIN 81 MG ENTERIC TABLET PO (09:30)
[2025-05-27] MEDS: TICAGRELOR 90 MG TABLET PO ×2 (09:30→20:34)
--- NOTE | 2025-05-27 10:18 | PM.PNCARD ---
Progress Note: A&P Assessment and Plan (1) ST elevation (STEMI) myocardial infarction: Qualifiers: Involved coronary artery: unspecified coronary artery Qualified Code(s): I21.3 - ST elevation (STEMI) myocardial infarction of unspecified site Code(s): I21.3 - ST elevation (STEMI) myocardial infarction of unspecified site Status: Acute Assessment and Plan: Status post WENDI to the LAD. Continue dual anti-platelet therapy. Continue beta-mansi, statin. Echo pending (2) Cardiac arrest: Code(s): I46.9 - Cardiac arrest, cause unspecified Status: Acute Assessment and Plan: Cardiac arrest in the ER status post CPR and cardioversion. Recovering okay at this point (3) V-tach: Code(s): I47.20 - Ventricular tachycardia, unspecified Status: Acute Assessment and Plan: At this point, reperfusion VT. Electrolytes replaced. Monitor BMP and Mag (4) Hypertension: Code(s): I10 - Essential (primary) hypertension Status: Acute Assessment and Plan: Will increase his carvedilol up to 12.5 mg p.o. b.i.d.. Add losartan 25 mg daily. (5) Hyperlipidemia LDL goal <70: Code(s): E78.5 - Hyperlipidemia, unspecified Status: Acute Assessment and Plan: On atorvastatin Subjective Date/time seen: 05/27/25 10:18 Interval history: 59 year-old with anterior STEMI and cardiac arrest in the ER requiring CPR and cardioversion. Now status post 2 WENDI to the LAD as detailed below Date of service 05/27/2025: Feels okay although tired and sore from CPR. Did have some reperfusion VT last night but it has improved. No syncope, shortness of breath Review of Systems Review of Systems: All systems reviewed & are unremarkable except as noted in HPI and below Constitutional: Constitutional: Denies body ache(s) Eyes: Eyes: Denies blurry vision ENT: Reports Normal hearing present Cardiovascular: Cardiovascular: Reports chest pain Respiratory: Respiratory: Denies dyspnea Gastrointestinal: Gastrointestinal: Denies abdominal pain Genitourinary: Genitourinary: Denies hematuria Musculoskeletal: Musculoskeletal: Denies joint swelling Integumentary/Breasts: Skin/Breast: Denies pruritus Neurologic: Denies Abnormal speech present Psychiatric: Psychiatric: Denies anxiety Endocrine: Endocrine: Denies change in body appearance Hematologic/Lymphatic: Hematologic/Lymphatic: Denies easy bleeding Allergic/Immunologic: Allergic/Immunologic: Denies GI upset with certain foods Exam Narrative: Awake alert and oriented appears to be in no acute distress at present. Appears stated age Const: General: comfortable and no acute distress HENMT: Face/Nose/Sinus: Normal nares present Mouth: Yes moist mucous membranes Eyes: General: appearance normal, both eyes and all related structures Sclera: sclerae normal Neck: Neck: supple and no JVD Resp: Effort & Inspection: normal respiratory effort Auscultation: clear to auscultation bilaterally Cardio: Rate: regular rate Rhythm: regular rhythm GI: Inspection: non-distended GI Palp: Yes Soft to palpation Skin: General skin exam: normal color and no rashes or lesions noted Other: Right groin is free of hematoma, ecchymosis or bruit. Neuro: Speech: normal speech Sensory Exam: normal sensation Extrem: General: normal to inspection Psych: Mental Status: mental status grossly normal Affect: normal affect Objective Data Vital Signs Vital Signs: Vital Signs - 24 hr 05/26/25 19:44 05/26/25 19:47 05/26/25 19:51 Temperature 36.4 C Pulse Rate 190 H 217 H 125 H Respiratory Rate 23 H Blood Pressure 158/95 H 109/74 124/97 H Pulse Oximetry 95 65 L 97 Oxygen Delivery Nasal Cannula Oxygen Flow Rate 2 05/26/25 19:55 05/26/25 19:58 05/26/25 20:02 Temperature Pulse Rate 179 H 123 H 100 Respiratory Rate Blood Pressure 149/88 H 158/95 H 116/78 Pulse Oximetry 94 94 100 Oxygen Delivery Oxygen Flow Rate 05/26/25 20:09 05/26/25 22:38 05/27/25 00:00 Temperature Pulse Rate 91 102 H 105 H Respiratory Rate 25 H Blood Pressure 140/101 H Pulse Oximetry 93 Oxygen Delivery Oxygen Flow Rate 05/27/25 00:00 05/27/25 00:00 05/27/25 01:00 Temperature Pulse Rate 110 H 92 Respiratory Rate 17 Blood Pressure 137/96 H Pulse Oximetry 91 Oxygen Delivery Room Air Oxygen Flow Rate 05/27/25 02:00 05/27/25 02:00 05/27/25 03:00 Temperature Pulse Rate 93 94 95 Respiratory Rate 18 21 H Blood Pressure 140/93 H 144/94 H Pulse Oximetry 93 96 Oxygen Delivery Oxygen Flow Rate 05/27/25 04:00 05/27/25 04:00 05/27/25 04:00 Temperature Pulse Rate 92 89 Respiratory Rate 31 H Blood Pressure 123/99 H Pulse Oximetry 97 Oxygen Delivery Room Air Oxygen Flow Rate 05/27/25 05:00 05/27/25 06:00 05/27/25 06:00 Temperature Pulse Rate 86 83 91 Respiratory Rate 17 20 Blood Pressure 143/98 H 147/98 H Pulse Oximetry 90 95 Oxygen Delivery Oxygen Flow Rate 05/27/25 07:00 05/27/25 08:00 05/27/25 08:00 Temperature 36.7 C Pulse Rate 93 94 94 Respiratory Rate 15 20 20 Blood Pressure 155/116 H 142/92 H Pulse Oximetry 98 99 99 Oxygen Delivery Room Air Oxygen Flow Rate 05/27/25 08:00 05/27/25 09:30 Temperature Pulse Rate 94 93 Respiratory Rate Blood Pressure Pulse Oximetry Oxygen Delivery Oxygen Flow Rate Intake/Output Intake/Output: Intake & Output 05/24/25 05/25/25 05/26/25 05/27/25 23:59 23:59 23:59 23:59 Intake Total 2040 Output Total 1400 Balance 640 Meds/Results Medications: Active Medications Generic Name Dose Route Start Last Admin Trade Name Freq PRN Reason Stop Dose Admin Acetaminophen 650 mg 05/27/25 07:48 Acetaminophen 325 Mg Tablet PO Q6H PRN Mild Pain (1-3) or Fever Aspirin 81 mg 05/27/25 09:00 05/27/25 09:30 Aspirin 81 Mg Enteric Tablet PO 81 mg QAM LARA Administration Atorvastatin Calcium 80 mg 05/26/25 21:55 05/26/25 22:38 Atorvastatin 40 Mg Tablet PO 80 mg QHS LARA Administration Carvedilol 6.25 mg 05/26/25 22:25 05/27/25 09:30 Carvedilol 6.25 Mg Tablet PO 6.25 mg Q12HR LARA Administration Perflutren Lipid Microsphere 0 ml 05/26/25 22:00 Perflutren Lipid Microspheres 1.5 Ml Vial Diluted To 10 Ml Total Volume IV PUSH 05/29/25 22:00 ONCE PRN adequate visualization Protocol Ticagrelor 90 mg 05/27/25 09:00 05/27/25 09:30 Ticagrelor 90 Mg Tablet PO 90 mg Q12HR LARA Administration Labs Labs: Laboratory Results - last 24 hr 05/26/25 05/26/25 05/26/25 19:59 19:59 20:00 WBC 14.6 H RBC 5.40 Hgb 16.7 Hct 52.1 H MCV 96.5 MCH 30.9 MCHC 32.1 RDW 13.0 Plt Count 320 MPV 8.8 Immature Gran % (Auto) 0.3 Neut % (Auto) 55.2 Lymph % (Auto) 35.7 [place] % (Auto) 7.4 Eos % (Auto) 0.5 Baso % (Auto) 0.9 Lymph # (Auto) 5.21 H [place] # (Auto) 1.1 H Eos # (Auto) 0.1 Baso # (Auto) 0.1 Abs Immat Gran (auto) 0.05 H Absolute Neuts (auto) 8.1 H Absolute Nucleated RBC 0.000 Nucleated RBC % 0.0 PT 13.5 INR 1.0 APTT 21.6 L Activ Coag Time Kaolin Sodium 141 Potassium 3.3 L Chloride 105 Carbon Dioxide 14 L Anion Gap 22 H BUN 10 Creatinine 1.25 Estim Creat Clear Calc 62 Estimated GFR 59 Glucose 161 H Hemoglobin A1c Calcium 10.2 Magnesium Total Bilirubin 0.7 AST 65 H ALT 62 H Alkaline Phosphatase 113 Troponin I 0.018 Cancelled NT-Pro-B Natriuret Pep 22 Total Protein 7.8 Albumin 4.8 Triglycerides 132 Cholesterol 251 H LDL Cholesterol Direct 155 HDL Direct 57 Nasal MRSA (PCR) Not detected Blood Type O Positive Antibody Screen Negative 05/26/25 05/26/25 05/27/25 21:17 21:35 04:10 WBC 13.8 H RBC 4.87 Hgb 15.2 Hct 45.0 MCV 92.4 MCH 31.2 MCHC 33.8 RDW 13.0 Plt Count 276 MPV 8.6 Immature Gran % (Auto) Neut % (Auto) Lymph % (Auto) [place] % (Auto) Eos % (Auto) Baso % (Auto) Lymph # (Auto) [place] # (Auto) Eos # (Auto) Baso # (Auto) Abs Immat Gran (auto) Absolute Neuts (auto) Absolute Nucleated RBC Nucleated RBC % PT INR APTT Activ Coag Time Kaolin 199 H 239 H Sodium 135 L Potassium 4.1 Chloride 106 Carbon Dioxide 22 Anion Gap 7 BUN 10 Creatinine 0.96 Estim Creat Clear Calc 79 Estimated GFR > 60 Glucose 168 H Hemoglobin A1c 5.4 Calcium 9.2 Magnesium 2.1 Total Bilirubin AST ALT Alkaline Phosphatase Troponin I > 80.000 H* NT-Pro-B Natriuret Pep Total Protein Albumin Triglycerides Cholesterol LDL Cholesterol Direct HDL Direct Nasal MRSA (PCR) Blood Type Antibody Screen LEFT HEART CATHETERIZATION FINDINGS: 1. Left main: The left main coronary artery is widely patent without any significant obstructive disease. 2. Left anterior descending: The LAD is occluded in its midbody at the bifurcation of a diagonal branch. 3. Left circumflex: The left circumflex artery and the main marginal branches have mild luminal irregularities without any significant obstructive angiographic disease. 4. Right coronary artery: The RCA has mild luminal irregularities without any significant obstructive angiographic disease. The RCA is the dominant vessel. 5. Left ventricle: A. End-diastolic pressure 22 mmHg. B. LV gram deferred. C. No significant gradient across aortic valve on catheter pullback. 6. Opening AO pressure 154/102 and closing AO pressure 144/88 Description of Procedure: Emergent consent obtained in the culture media laboratory assistant. Prepped and draped in usual sterile fashion. 2% lidocaine in right groin area. Micropuncture needle used to access right common femoral artery with Seldinger technique under ultrasound and fluoroscopic guidance. J wire advanced, micropuncture cannula placed and exchanged for 6F sheath. Procedure Description for PCI: Heparin was used for anticoagulation (ACT maintained above 250) Patient loaded with heparin at 70 units/kg. 6F EBU 4.0 guide catheter was used to intubate the LMCA. 0.014 Runthrough coronary wire was passed in to the left circumflex. A second Runthrough was negotiated into the distal LAD. The lesion was pre-dilated with a 2.5 x 15mm balloon and repeat angiogram demonstrated more intracoronary thrombus. A Penumbra Cat RX thrombectomy device was used with resolution of thrombus. An IVUS catheter was then passed into the LAD to obtain vessel sizing followed by deployment of overlapping 4.5 x 30mm and 5.0 x 18mm [place] WENDI; post dilated with a 5.0 x 15mm NC to high eileen with excellent angiographic results. IC cardene 200mcg and IC nitroglycerin 300mcg was delivered for some slow flow. All intracoronary equipment was then removed under fluoroscopy and final angiogram demonstrated excellent results. Pre-procedure - MICHAEL 0 flow Post-procedure - MICHAEL 3 flow No angiographic complications identified.
--- NOTE | 2025-05-27 11:04 | P.CONIN_ITS ---
Assessment and Plan Assessment and plan (1) ST elevation (STEMI) myocardial infarction: Qualifiers: Involved coronary artery: unspecified coronary artery Qualified Code(s): I21.3 - ST elevation (STEMI) myocardial infarction of unspecified site Code(s): I21.3 - ST elevation (STEMI) myocardial infarction of unspecified site Status: Acute Assessment and Plan: Patient presented with substernal chest pain that started 30-45 minutes prior to arrival to the ER along with shortness of breath. EKG showed ST-elevation MA in the anterior leads -STEMI team was activated and patient was taken to the cardiac slab miller operator where he had a PTCA/PCI with WENDI x2 on an overlapping fashion to mid LAD with thrombectomy with excellent angiographic results -started on Coreg, Brilinta, aspirin, atorvastatin -cardiology increased his Coreg and added losartan -LV gram was deferred -echocardiogram has been ordered (2) Cardiac arrest: Code(s): I46.9 - Cardiac arrest, cause unspecified Status: Acute Assessment and Plan: Patient did going VFib arrest most likely related to anterior MA, 2 rounds of CPR along with defibrillation before ROSC was achieved. Patient was in white complex ventricular tachycardia and was cardioverted to normal sinus rhythm. -initially was on amiodarone which has been discontinued -continue Coreg -cardiology following the patient (3) Hypertension: Code(s): I10 - Essential (primary) hypertension Status: Acute Assessment and Plan: Hypertension with elevated blood pressures -Coreg and losartan has been added by Cardiology (4) Hyperlipidemia LDL goal <70: Code(s): E78.5 - Hyperlipidemia, unspecified Status: Acute Assessment and Plan: Continue atorvastatin Plan DVT prophylaxis: Status post cardiac catheterization Stress ulcer prophylaxis: Not indicated Nutrition: Heart healthy diet Code Status: Full code Critical Care Time Spent: 44 minutes Due to a high probability of clinically significant, life threatening deterioration, the patient required my highest level of preparedness to intervene emergently and I personally spent this critical care time directly and personally managing the patient. This critical care time included obtaining a history; examining the patient; pulse oximetry; ordering and review of studies; arranging urgent treatment with development of a management plan; evaluation of patient's response to treatment; frequent reassessment; and discussions with other providers. It was exclusive of separately billable procedures and treating other patients and teaching time. Please see Assessment and Plan section and the rest of the note for further information on patient assessment and treatment This dictation may have been done utilizing a voice recognition system. Attempts have been made to correct errors. However, there may be uncorrected grammatical, spelling, and recognitions errors present. [employer] Consult Note Consult date: 05/27/25 Reason for consult: Chest pain, VFib arrest in the ER status post defibrillation, STEMI, status post PTCA/PCI with WENDI x2 in an overlapping fashion to mid LAD along with thrombectomy with excellent angiographic result HPI: Jarek Fenton is a 59 year old male with no significant past medical history, presented the ED on 05/26/2025 with complains of chest pain that started about an 30-45 minutes prior to his arrival to the ED, substernal chest pain, throbbing sensation, complained of shortness of breath and diaphoresis. EKG in the ER showed ST elevations in the anterior lead, patient went into VFib arrest, received 2 rounds of CPR and defibrillation before ROSC. After ROSC patient had rhythm on the monitor that looked like ventricular tachycardia with rates in the 200s and a white QRS complex, a synchronized cardioversion was performed and patient was cardioverted to what appeared to be a sinus rhythm on the monitor. Patient was awake, following commands and neurologically intact. Patient was given amiodarone, heparin, nitro paste and nitroglycerin drip along with oxygen and aspirin. Patient was taken to cardiac slab miller operator where he was found to have 100% occlusion of the mid LAD at the bifurcation of the diagonal branch. PTCA/PCI with WENDI x2 in overlapping fashion to mid LAD along with thrombectomy with excellent angiographic results. End-diastolic pressures was 22 mmHg, LV gram was deferred. Patient was started on aspirin, Coreg, Brilinta and transfer the ICU for further management. Patient seen and examined the ICU this morning, pleasant gentleman currently complaining of chest wall discomfort likely related to CPR and defibrillation. Patient denies any shortness of breath, nausea, vomiting. Hemodynamically stable, blood pressure is slightly elevated. Patient does vape/ uses smokeless tobacco, quit drinking alcohol 13 years ago, denies any illicit drug use. Review of Systems 2 Review of Systems: All systems reviewed & are unremarkable except as noted in HPI and below PMFSH Past Medical History Medical History (Updated 05/27/25 @ 10:22 by Moi Sanford MD) Hyperlipidemia LDL goal <70 Hypertension Family History Family History (Updated 05/26/25 @ 23:06 by Annalisa Rangel RN) Father Pancreatic cancer Mother Alzheimer dementia Hypertension Mother Arthritis Sibling Oral cancer Social History Social History Smoking status: Current every day smoker Tobacco type: smokeless tobacco Second hand tobacco smoke exposure: No Alcohol intake: former Substance use: never Lack of Transportation: No Lack of Food: Never True Current Housing: I Have Housing Concerned About Future Housing: No Difficulty Paying Gas/Electric Bills: No Difficulty Paying for Meds: No Currently Unemployed: No Education: Associate Degree Difficulty w/ Childcare or Family Care: No Spiritual care concerns: No Meds Home Medications and Allergies Home Medications ?Medication ?Instructions ?Recorded ?Confirmed ?Type No Home Medications 05/26/25 05/26/25 H istory Allergies Allergy/AdvReac Type Severity Reaction Status Date / Time No Known Allergies Allergy Verified 07/30/22 10:06 Vital Signs Vital Signs - 24 hr 05/26/25 19:44 05/26/25 19:47 05/26/25 19:51 Temperature 97.6 F Pulse Rate 190 H 217 H 125 H Respiratory Rate 23 H Blood Pressure 158/95 H 109/74 124/97 H Pulse Oximetry 95 65 L 97 Oxygen Delivery Nasal Cannula Oxygen Flow Rate 2 05/26/25 19:55 05/26/25 19:58 05/26/25 20:02 Temperature Pulse Rate 179 H 123 H 100 Respiratory Rate Blood Pressure 149/88 H 158/95 H 116/78 Pulse Oximetry 94 94 100 Oxygen Delivery Oxygen Flow Rate 05/26/25 20:09 05/26/25 22:38 05/27/25 00:00 Temperature Pulse Rate 91 102 H 105 H Respiratory Rate 25 H Blood Pressure 140/101 H Pulse Oximetry 93 Oxygen Delivery Oxygen Flow Rate 05/27/25 00:00 05/27/25 00:00 05/27/25 01:00 Temperature Pulse Rate 110 H 92 Respiratory Rate 17 Blood Pressure 137/96 H Pulse Oximetry 91 Oxygen Delivery Room Air Oxygen Flow Rate 05/27/25 02:00 05/27/25 02:00 05/27/25 03:00 Temperature Pulse Rate 93 94 95 Respiratory Rate 18 21 H Blood Pressure 140/93 H 144/94 H Pulse Oximetry 93 96 Oxygen Delivery Oxygen Flow Rate 05/27/25 04:00 05/27/25 04:00 05/27/25 04:00 Temperature Pulse Rate 92 89 Respiratory Rate 31 H Blood Pressure 123/99 H Pulse Oximetry 97 Oxygen Delivery Room Air Oxygen Flow Rate 05/27/25 05:00 05/27/25 06:00 05/27/25 06:00 Temperature Pulse Rate 86 83 91 Respiratory Rate 17 20 Blood Pressure 143/98 H 147/98 H Pulse Oximetry 90 95 Oxygen Delivery Oxygen Flow Rate 05/27/25 07:00 05/27/25 08:00 05/27/25 08:00 Temperature 98.1 F Pulse Rate 93 94 94 Respiratory Rate 15 20 20 Blood Pressure 155/116 H 142/92 H Pulse Oximetry 98 99 99 Oxygen Delivery Room Air Oxygen Flow Rate 05/27/25 08:00 05/27/25 09:30 05/27/25 10:00 Temperature Pulse Rate 94 93 95 Respiratory Rate Blood Pressure Pulse Oximetry Oxygen Delivery Oxygen Flow Rate 05/27/25 10:00 Temperature Pulse Rate 93 Respiratory Rate 8 L Blood Pressure 150/106 H Pulse Oximetry 91 Oxygen Delivery Oxygen Flow Rate Exam 2 Narrative: General: Pleasant gentleman in no acute distress HEENT:? Pupils equal and reactive, sclerae is clear Neck:? Supple Respiratory:? Clear to auscultation bilaterally, no wheezing, adequate air in Cardiac:? S1-S2 noted, regular rate and rhythm Abdomen:? Soft, nontender, nondistended, normoactive bowel sound Extremities:? Right groin site with no ecchymosis or edema, palpable pedal pulse Neuro:? Patient is awake, alert, oriented x3, nonfocal, answers to questions appropriately and follows simple commands in all extremities Skin:? No skin lesions noted, skin is warm and dry Psych:? Normal mentation and affect Results Labs 05/27/25 04:10 05/27/25 04:10 Labs: Short CBC 05/26/25 05/27/25 Range/Units 19:59 04:10 WBC 14.6 H 13.8 H (4.5-10.0) K/mm3 Hgb 16.7 15.2 (14.0-18.0) g/dL Hct 52.1 H 45.0 (42.0-52.0) % Plt Count 320 276 (150-375) k/mm3 BMP 05/26/25 05/27/25 19:59 04:10 Sodium 141 135 L Potassium 3.3 L 4.1 Chloride 105 106 Carbon Dioxide 14 L 22 BUN 10 10 Creatinine 1.25 0.96 Glucose 161 H 168 H Calcium 10.2 9.2 Cardiac Enzymes 05/26/25 05/26/25 05/27/25 Range/Units 19:59 19:59 04:10 Troponin I 0.018 Cancelled > 80.000 H* (0.000-0.034) ng/mL Liver Function 05/26/25 Range/Units 19:59 Total Bilirubin 0.7 (0.2-1.3) mg/dL AST 65 H (17-59) U/L ALT 62 H (6-50) U/L Alkaline Phosphatase 113 (38-126) U/L Albumin 4.8 (3.5-5.1) g/dL Quality VTE Prophylaxis VTE prophylaxis: mechanical ordered Hospitalist MIPS Advance Care Plan I have confirmed that the patient's Advanced Care Plan is present, code status is documented, or surrogate decision maker is listed in patient medical record.: Yes Medication Reconciliation I have utilized all available resources to obtain, update and review the patients current medications (includes all prescriptions, OTC, herbals, cannabis, and nutritional supplements).: Yes
[2025-05-27] MEDS: LOSARTAN POTASSIUM 25 MG TABLET PO (11:19)
[2025-05-27] MEDS: PERFLUTREN LIPID MICROSPHERES 1.5 ML VIAL DILUTED TO 10 ML TOTAL VOLUME IV PUSH (11:41)
--- NOTE | 2025-05-27 11:41 | IVDEFINITY ---
Prior to administration of IV Definity the patient was educated on the risks and benefits of the imaging enhancing agent including potential adverse side effects. The patient verbalized understanding. Allergies were verified. No exclusion criteria were identified and at least one of the following inclusion criteria were met: 1) physician request, 2) patient technically difficult to image (per the [place] [employer] of Echocardiography guidelines of two or more segments not discernable within the apical view), or 3) questionable left ventricular function. ?
[2025-05-27] MEDS: ONDANSETRON INJ 4 MG/2 ML VIAL IV PUSH (16:49)
[2025-05-27] MEDS: ACETAMINOPHEN 325 MG TABLET 650 MG PO (20:33)
[2025-05-27] MEDS: FAMOTIDINE 20 MG TABLET PO (20:33)
[2025-05-27] MEDS: ATORVASTATIN 40 MG TABLET 80 MG PO (20:33)
[2025-05-28] VITALS (19 sets, daily range): BP systolic 99–131; BP diastolic 68–86; PULSE 77–98; RESP 16–26; TEMP 36.5–36.9; O2SAT 93–99
[2025-05-28] MEDS: ACETAMINOPHEN 325 MG TABLET 650 MG PO (03:26)
[2025-05-28 04:57] LABS: Hematocrit 44.0 % (42.0-52.0); Hemoglobin 14.6 g/dL (14.0-18.0); Immature Granulocyte Percent A 0.5 % (0-0.5); Lymphocytes Absolute Auto 1.34 K/mm3 (0.9-3.2); Mean Corpuscular HGB Conc 33.2 g/dl (32-36); Mean Corpuscular Hemoglobin 31.0 pg (26-34); Mean Corpuscular Volume 93.4 fl (80-100); Nucleated Red Blood Cells Absolute Auto 0.000 K/mm3 (0.0-0.012); Nucleated Red Blood Cells Perc 0.0 % (0.0-0.2); Platelet Count Result 249 k/mm3 (150-375); Red Blood Count 4.71 M/mm3 (4.6-6.20); White Blood Count 18.0 K/mm3 (4.5-10.0)
[2025-05-28 05:22] LABS: Alanine Aminotransferase 105 U/L (6-50); Albumin Level 3.7 g/dL (3.5-5.1); Alkaline Phosphatase 76 U/L (38-126); Anion Gap 4 mmol/L (4-12); Aspartate Amino Transferase 251 U/L (17-59); Bilirubin,Total 1.1 mg/dL (0.2-1.3); Blood Urea Nitrogen 11 mg/dL (9-20); Calcium 9.2 mg/dL (8.4-10.2); Carbon Dioxide 23 mmol/L (22-30); Chloride 103 mmol/L (98-107); Estimated CRCL calculation 78 ml/min; Estimated Glomerular Filt Rate > 60; Glucose 148 mg/dL (65-110); Magnesium 2.1 mg/dL (1.6-2.3); Potassium 3.8 mmol/L (3.4-5.0); Sodium 130 mmol/L (137-145); Total Protein 6.4 g/dL (6.3-8.2)
[2025-05-28] MEDS: LOSARTAN POTASSIUM 25 MG TABLET PO (09:31)
[2025-05-28] MEDS: TICAGRELOR 90 MG TABLET PO ×2 (09:31→20:33)
[2025-05-28] MEDS: ASPIRIN 81 MG ENTERIC TABLET PO (09:31)
--- NOTE | 2025-05-28 09:43 | P.PNCA_ITS ---
Progress Note: A&P Assessment and Plan (1) ST elevation (STEMI) myocardial infarction: Qualifiers: Involved coronary artery: unspecified coronary artery Qualified Code(s): I21.3 - ST elevation (STEMI) myocardial infarction of unspecified site Code(s): I21.3 - ST elevation (STEMI) myocardial infarction of unspecified site Status: Acute Assessment and Plan: Status post WENDI to the LAD. Continue dual anti-platelet therapy. Continue beta-mansi, statin, ARB. EF 25-30% (2) Cardiac arrest: Code(s): I46.9 - Cardiac arrest, cause unspecified Status: Acute Assessment and Plan: Cardiac arrest in the ER status post CPR and cardioversion. Recovering okay at this point (3) V-tach: Code(s): I47.20 - Ventricular tachycardia, unspecified Status: Acute Assessment and Plan: At this point, reperfusion VT. Electrolytes replaced. Monitor BMP and Mag (4) Hypertension: Code(s): I10 - Essential (primary) hypertension Status: Acute Assessment and Plan: Continue carvedilol but will transition him from losartan to Entresto 24/26 mg 1 tablet p.o. b.i.d. (5) Hyperlipidemia LDL goal <70: Code(s): E78.5 - Hyperlipidemia, unspecified Status: Acute Assessment and Plan: On atorvastatin (6) Ischemic cardiomyopathy: Code(s): I25.5 - Ischemic cardiomyopathy Status: Acute Assessment and Plan: EF 25-30%. He is at high risk of sudden cardiac . I did talk to him by Life Vest he is in agreement. Will order a LifeVest. Will need a repeat echocardiogram and approximately 45 days to reassess EF to see if defibrillator is in warranted. Will also order a repeat limited echo tomorrow with contrast to evaluate for LV thrombus given dense wall abnormality at the apex Subjective Date/time seen: 05/28/25 09:43 Interval history: 59 year-old with anterior STEMI and cardiac arrest in the ER requiring CPR and cardioversion. Now status post 2 WENDI to the LAD as detailed below Date of service 05/27/2025: Feels okay although tired and sore from CPR. Did have some reperfusion VT last night but it has improved. No syncope, shortness of breath Date of service 05/28/2025: Echocardiogram showed ejection fraction 25-30%. Feels okay the and still has some chest soreness from CPR but no chest pain like he had prior to coming to the hospital. No shortness of breath Review of Systems Review of Systems: All systems reviewed & are unremarkable except as noted in HPI and below Constitutional: Constitutional: Denies body ache(s) Eyes: Eyes: Denies blurry vision ENT: Reports Normal hearing present Cardiovascular: Cardiovascular: Reports chest pain and Denies dyspnea Respiratory: Respiratory: Denies dyspnea Gastrointestinal: Gastrointestinal: Denies abdominal pain Genitourinary: Genitourinary: Denies hematuria Musculoskeletal: Musculoskeletal: Denies joint swelling Integumentary/Breasts: Skin/Breast: Denies pruritus Neurologic: Reports Normal hearing present and Denies Abnormal speech present Psychiatric: Psychiatric: Denies anxiety Endocrine: Endocrine: Denies change in body appearance Hematologic/Lymphatic: Hematologic/Lymphatic: Denies easy bleeding Allergic/Immunologic: Allergic/Immunologic: Denies GI upset with certain foods Exam Narrative: Awake alert and oriented appears to be in no acute distress at present. Appears stated age Const: General: comfortable, no acute distress and uncomfortable HENMT: Face/Nose/Sinus: Normal nares present Mouth: Yes moist mucous membranes Eyes: General: appearance normal, both eyes and all related structures Sclera: sclerae normal EOM: EOMs intact bilaterally Neck: Neck: supple and no JVD Resp: Effort & Inspection: normal respiratory effort Auscultation: clear to auscultation bilaterally Cardio: Rate: regular rate Rhythm: regular rhythm GI: Inspection: non-distended Skin: General skin exam: normal color and no rashes or lesions noted Other: Right groin is free of hematoma, ecchymosis or bruit. Neuro: Cranial nerves: Yes Normal hearing present Speech: normal speech and No Abnormal speech present Sensory Exam: normal sensation Extrem: General: normal to inspection Psych: Mental Status: mental status grossly normal Affect: normal affect Objective Data Vital Signs Vital Signs: Vital Signs - 24 hr 05/27/25 10:05/27/25 10:05/27/25 12:00 Temperature Pulse Rate 95 93 94 Respiratory Rate 8 L 20 Blood Pressure 150/106 H Pulse Oximetry 91 99 Oxygen Delivery Room Air 05/27/25 12:00 05/27/25 12:00 05/27/25 14:00 Temperature Pulse Rate 93 96 96 Respiratory Rate 18 Blood Pressure 140/98 H Pulse Oximetry 93 Oxygen Delivery 05/27/25 16:00 05/27/25 16:00 05/27/25 16:00 Temperature Pulse Rate 93 87 87 Respiratory Rate 18 18 Blood Pressure 141/37 H Pulse Oximetry 93 93 Oxygen Delivery Room Air 05/27/25 20:00 05/27/25 20:00 05/27/25 20:00 Temperature 36.4 C Pulse Rate 98 96 Respiratory Rate 16 Blood Pressure 143/93 H Pulse Oximetry 94 Oxygen Delivery Room Air 05/27/25 20:33 05/27/25 22:00 05/27/25 23:58 Temperature 36.8 C Pulse Rate 97 89 92 Respiratory Rate 18 Blood Pressure 112/79 Pulse Oximetry 93 Oxygen Delivery 05/28/25 00:00 05/28/25 00:00 05/28/25 02:00 Temperature Pulse Rate 86 80 Respiratory Rate Blood Pressure Pulse Oximetry Oxygen Delivery Room Air 05/28/25 03:59 05/28/25 04:00 05/28/25 04:00 Temperature 36.5 C Pulse Rate 89 84 Respiratory Rate 16 Blood Pressure 112/72 Pulse Oximetry 97 Oxygen Delivery Room Air 05/28/25 06:00 05/28/25 07:08 Temperature 36.6 C Pulse Rate 77 88 Respiratory Rate 18 Blood Pressure 122/82 Pulse Oximetry 93 Oxygen Delivery Intake/Output Intake/Output: Intake & Output 05/25/25 05/26/25 05/27/25 05/28/25 23:59 23:59 23:59 23:59 Intake Total 2280 350 Output Total 1700 Balance 580 350 Meds/Results Medications: Active Medications Generic Name Dose Route Start Last Admin Trade Name Freq PRN Reason Stop Dose Admin Acetaminophen 650 mg 05/27/25 07:48 05/28/25 03:26 Acetaminophen 325 Mg Tablet PO 650 mg Q6H PRN Administration Mild Pain (1-3) or Fever Aspirin 81 mg 05/27/25 09:00 05/28/25 09:31 Aspirin 81 Mg Enteric Tablet PO 81 mg QAM LARA Administration Atorvastatin Calcium 80 mg 05/26/25 21:55 05/27/25 20:33 Atorvastatin 40 Mg Tablet PO 80 mg QHS LARA Administration Calcium Carbonate 200 mg 05/27/25 20:18 Calcium Carbonate (Tums) 500 Mg (200 Mg Elemental) PO Q6H PRN Indigestion Carvedilol 12.5 mg 05/27/25 21:00 05/28/25 09:31 Carvedilol 12.5 Mg Tablet PO 12.5 mg Q12HR LARA Administration Losartan Potassium 25 mg 05/27/25 10:25 05/28/25 09:31 Losartan Potassium 25 Mg Tablet PO 25 mg DAILY LARA Administration Ticagrelor 90 mg 05/27/25 09:00 05/28/25 09:31 Ticagrelor 90 Mg Tablet PO 90 mg Q12HR LARA Administration Radiology Results: ITS Impressions Chest X-Ray 05/27/25 16:36 Impression: No acute cardiopulmonary abnormality. Labs Labs: Laboratory Results - last 24 hr 05/28/25 03:48 WBC 18.0 H RBC 4.71 Hgb 14.6 Hct 44.0 MCV 93.4 MCH 31.0 MCHC 33.2 RDW 13.3 Plt Count 249 MPV 9.3 Immature Gran % (Auto) 0.5 Neut % (Auto) 83.7 H Lymph % (Auto) 7.4 L [place] % (Auto) 8.1 Eos % (Auto) 0.1 Baso % (Auto) 0.2 Lymph # (Auto) 1.34 [place] # (Auto) 1.5 H Eos # (Auto) 0.0 Baso # (Auto) 0.0 Abs Immat Gran (auto) 0.09 H Absolute Neuts (auto) 15.1 H Absolute Nucleated RBC 0.000 Nucleated RBC % 0.0 Sodium 130 L Potassium 3.8 Chloride 103 Carbon Dioxide 23 Anion Gap 4 BUN 11 Creatinine 0.98 Estim Creat Clear Calc 78 Estimated GFR > 60 Glucose 148 H Calcium 9.2 Phosphorus 2.5 Magnesium 2.1 Total Bilirubin 1.1 AST 251 H ALT 105 H Alkaline Phosphatase 76 Total Protein 6.4 Albumin 3.7
[2025-05-28] MEDS: ATORVASTATIN 40 MG TABLET 80 MG PO (20:33)
[2025-05-28] MEDS: SACUBITRIL/VALSARTAN 24-26 MG TABLET 1 TAB PO (20:33)
[2025-05-29] VITALS (10 sets, daily range): BP systolic 95–107; BP diastolic 64–69; PULSE 68–94; RESP 16–22; TEMP 36.7–37.2; O2SAT 92–98
--- NOTE | 2025-05-29 | ECHO_ITS ---
Patient Info Name: Jarek Fenton Age: 59 years : 1965 Gender: Male Ht: 72 in Wt: 195 lbs BSA: 2.13 m2 HR: 68 bpm BP: 101 / 67 mmHg Technical Quality: Good Exam Date: 05/29/2025 9:20 AM Patient Status: I Admit Date: 05/26/2025 Exam Type: CA echo limited w contrast Limited two-dimensional transthoracic echocardiogram is performed with contrast. Staff Referring Physician: Rashid Núñez Cost Accounting Clerk: Samir Cartagena III Attending Provider: Heraclio Ortega Contrast/Agitated Saline Contrast/Ag. Saline: Definity Amount: 2.00 ml Administered By: Samir Cartagena III Existing IV Access: Yes IV Access Condition: patent with no signs of infiltration Summary 1. The left ventricle is normal in size with severely reduced systolic function. The left ventricular ejection fraction is visually estimated to be 25-30%. The entire apex, anterior wall, mid to distal anteroseptum, mid to distal inferoseptum, mid to distal anterolateral lehman, and remaining distal lehman are akinetic. There is very slow flow in the apex; however no definitive left ventricular thrombus is noted. 2. There is trace pericardial effusion. Left Ventricle The left ventricle is normal in size with severely reduced systolic function. The left ventricular ejection fraction is visually estimated to be 25-30%. The entire apex, anterior wall, mid to distal anteroseptum, mid to distal inferoseptum, mid to distal anterolateral lehman, and remaining distal lehman are akinetic. There is very slow flow in the apex; however no definitive left ventricular thrombus is noted. Right Ventricle The right ventricle is normal in size and systolic function. Left Atria The left atrium is normal in size. Right Atria The right atrium is normal in size. Atrial Septum Atrial septum is normal. Aortic Valve The aortic valve is trileaflet opens well. Pulmonic Valve The pulmonic valve is grossly normal. Mitral Valve The mitral valve is normal. Tricuspid Valve The tricuspid valve is normal. Pericardium/Pleural There is trace pericardial effusion. Inferior Vena Cava Inferior vena cava is not well visualized. Aorta The aortic root is normal size. Ventricles Name Value Normal LV Dimensions 2D/MM IVS Diastolic Thickness (2D) 1.0 cm 0.6-1.0 LVID Diastole (2D) 5.5 cm 4.2-5.8 LVIW Diastolic Thickness (2D) 1.1 cm 0.6-1.0 LVID Systole (2D) 3.6 cm 2.5-4.0 LV Mass (2D Cubed) 227.84 g 88.00-224.00 LV Mass Index (2D Cubed) 107 g/m2 49-115 Relative Wall Thickness (2D) 0.39 <=0.42 LV Fractional Shortening/Ejection Fraction 2D/MM LV Fractional Shortening (2D) 35 % 25-43 LV EF (2D Teichholz) 64 % LV Diastolic Volume (4C MOD) 161 ml LV EF (4C MOD) 42 % LV Diastolic Volume (2C MOD) 117 ml LV EF (2C MOD) 30 % LV Diastolic Volume (BP MOD) 124 ml 62-150 LV Diastolic Volume Index (BP MOD) 58 ml/m2 34-74 LV Systolic Volume (BP MOD) 79 ml 21-61 LV Systolic Volume Index (BP MOD) 37 ml/m2 11-31 LV EF (BP MOD) 37 % 52-72 LV Diastolic Length (4C) 9.1 cm LV Systolic Length (4C) 8.5 cm LV Stroke Volume (4C MOD) 68 ml Report Signatures
[2025-05-29] MEDS: ACETAMINOPHEN 325 MG TABLET 650 MG PO (01:47)
[2025-05-29 05:13] LABS: Alanine Aminotransferase 92 U/L (6-50); Albumin Level 3.3 g/dL (3.5-5.1); Alkaline Phosphatase 59 U/L (38-126); Anion Gap 3 mmol/L (4-12); Aspartate Amino Transferase 123 U/L (17-59); Bilirubin,Total 1.0 mg/dL (0.2-1.3); Blood Urea Nitrogen 11 mg/dL (9-20); Calcium 8.8 mg/dL (8.4-10.2); Carbon Dioxide 26 mmol/L (22-30); Chloride 103 mmol/L (98-107); Estimated CRCL calculation 78 ml/min; Estimated Glomerular Filt Rate > 60; Glucose 132 mg/dL (65-110); Potassium 3.8 mmol/L (3.4-5.0); Sodium 132 mmol/L (137-145); Total Protein 5.7 g/dL (6.3-8.2)
[2025-05-29] MEDS: TICAGRELOR 90 MG TABLET PO (09:50)
[2025-05-29] MEDS: ASPIRIN 81 MG ENTERIC TABLET PO (09:50)
[2025-05-29] MEDS: PERFLUTREN LIPID MICROSPHERES 1.5 ML VIAL DILUTED TO 10 ML TOTAL VOLUME IV PUSH (10:43)
--- NOTE | 2025-05-29 10:43 | IVDEFINITY ---
Prior to administration of IV Definity the patient was educated on the risks and benefits of the imaging enhancing agent including potential adverse side effects. The patient verbalized understanding. Allergies were verified. No exclusion criteria were identified and at least one of the following inclusion criteria were met: 1) physician request, 2) patient technically difficult to image (per the [place] [employer] Echocardi[employer] guidelines of two or more segments not discernable within the apical view), or 3) questionable left ventricular function. ?
[2025-05-29] MEDS: EMPAGLIFLOZIN 10 MG TABLET PO (11:50)
--- NOTE | 2025-05-29 14:24 | P.DS_ITS ---
DS: Admitting Diagnosis Discharge Date 05/29/2025 Admitting Diagnosis Anterior STEMI DS: Discharge Diagnosis Discharge Diagnosis (1) ST elevation (STEMI) myocardial infarction: Qualifiers: Involved coronary artery: unspecified coronary artery Qualified Code(s): I21.3 - ST elevation (STEMI) myocardial infarction of unspecified site Code(s): I21.3 - ST elevation (STEMI) myocardial infarction of unspecified site Status: Acute (2) Ischemic cardiomyopathy: Code(s): I25.5 - Ischemic cardiomyopathy Status: Acute (3) Cardiac arrest: Code(s): I46.9 - Cardiac arrest, cause unspecified Status: Acute Plan Continue GDMT and LifeVest for ischemic cardiomyopathy Continue dual anti-platelet therapy for STEMI status post PCI Follow-up in clinic for repeat transthoracic echocardiogram with contrast DS: Summary Hospital Course Hospital Course: 59-year-old man who presented with chest pain found to be in anterior ST- elevation VT for which he received primary PCI. His hospital course in emergency room included VF arrest for which he received 1 round of CPR followed by successful defibrillation. After undergoing primary PCI, he had a transthoracic echocardiogram showing severe ischemic cardiomyopathy for which was initiated on maximally tolerated GDMT and will be discharged on LifeVest. Status at Discharge Functional status at discharge: independent ambulation Overall status at discharge: patient is back to baseline Time Spent with Patient Time attestation: Total time spent providing and/or coordinating discharge services: Time spent: Greater than 30 minutes Exam Const: General: comfortable HENMT: Mouth: Yes moist mucous membranes Eyes: EOM: EOMs intact bilaterally Neck: Neck: no JVD Resp: Effort & Inspection: normal respiratory effort Auscultation: clear to auscultation bilaterally Cardio: Rate: regular rate Rhythm: regular rhythm GI: GI Palp: Yes Soft to palpation Extrem: General: no pedal edema DS: Data Data Completed and Pending Labs on day of discharge: Labs from last 24 hours 05/29/25 04:23 Sodium 132 L Potassium 3.8 Chloride 103 Carbon Dioxide 26 Anion Gap 3 L BUN 11 Creatinine 0.98 Estim Creat Clear Calc 78 Estimated GFR > 60 Glucose 132 H Calcium 8.8 Total Bilirubin 1.0 AST 123 H ALT 92 H Alkaline Phosphatase 59 Total Protein 5.7 L Albumin 3.3 L Discharge Plan Discharge Attending physician on discharge: Heraclio Ortega Discharging Clinician: Heraclio Ortega Patient Disposition: Home Activity: other - see discharge instructions Diet: heart healthy Wound Care Instructions: follow printed instructions Patient Instructions: Antibiotic Form, Aspirin (By mouth), Atorvastatin (By mouth), Carvedilol (By mouth), Ticagrelor (By mouth), Sacubitril/Valsartan (By mouth), Heart Healthy Diet (DC), Acute Coronary Syndrome (DC), Cardiac Rehabilitation (DC) Patient Language: [place] Stand Alone Forms: General Discharge Information Follow-up/Referrals: Heraclio Ortega MD [Physician, Interventional Cardiology] Discharge Medications: New aspirin 81 mg Tablet,Delayed Release (Dr/Ec) 81 mg PO QAM Qty: 90 0RF carvedilol [Coreg] 12.5 mg Tablet 12.5 mg PO Q12HR Qty: 180 0RF ticagrelor [Brilinta] 90 mg Tablet 90 mg PO Q12HR Qty: 180 0RF Jardiance 10 mg Tablet 10 mg PO DAILY Qty: 90 0RF sacubitril-valsartan [Entresto] 24-26 mg Tablet 1 tablet PO Q12HR Qty: 180 0RF atorvastatin [Lipitor] 80 mg tablet 80 mg PO HS Qty: 90 0RF Date of admission: 05/26/25 22:18 Primary Care Provider: Drake,Netta Stevens Admitting Provider: Heraclio Ortega Attending physician on admission: Heraclio Ortega Condition: Critical
--- NOTE | 2025-05-29 15:38 | PM.EVENT ---
Event Note Event Note Event Note: during discharge, it was noted that Entresto is not covered by his insurance. Therefore we switched him from Entresto to losartan 50 mg oral daily
== END 2025-05-29 18:17 | disposition home or self-care (01) | DRG 359 ==
LOC: ANHED 20:12 → ANHICU 22:22 → ANHIMU 05-27 17:33
PROVIDERS: Internal Medicine; Internal Medicine Cardiovascular Disease; Admitting Provider Internal Medicine; Emergency Provider Student in an Organized Health Care Education/Training Program; PCP Physician Assistant; Visit Provider Internal Medicine
PROC: 4A023N7 Measurement of Cardiac Sampling and Pressure, Left Heart, Percutaneous Approach (ICD-10-PCS; CPT 93452; principal; 2025-05-26 20:05)
PROC: 027035Z Dilation of Coronary Artery, One Artery with Two Drug-eluting Intraluminal Devices, Percutaneous Approach (ICD-10-PCS; 2025-05-26 20:05)
PROC: 027034Z Dilation of Coronary Artery, One Artery with Drug-eluting Intraluminal Device, Percutaneous Approach (ICD-10-PCS; CPT 92928; 2025-05-26 20:05)
PROC: 027035Z Dilation of Coronary Artery, One Artery with Two Drug-eluting Intraluminal Devices, Percutaneous Approach (ICD-10-PCS; 2025-05-26 20:05)
DX: I21.09 ST elevation (STEMI) myocardial infarction involving other coronary artery of anterior wall (principal); I46.2 Cardiac arrest due to underlying cardiac condition; I47.20 Ventricular tachycardia, unspecified; I25.5 Ischemic cardiomyopathy; I10 Essential (primary) hypertension; E78.5 Hyperlipidemia, unspecified; F17.290 Nicotine dependence, other tobacco product, uncomplicated
CPT/HCPCS: 36415; 71045; 80048; 80053; 80061; 83036; 83735; 83880; 84100; 84484; 85025; 85027; 85610; 85730; 86850; 86900; 86901; 87641; 92978; 93005; 93306; 93308; 93458; 99291; A9270; C1725; C1753; C1757; C1760; C1769; C1874; C1887; C1894; C8924; C8929; C9606; G0269; J1644; J2003; J2250; J2305; J2404; J2405; J3010; J7030; J7040; Q9957

== ENCOUNTER 2025-06-02 13:55 | Emergency (ER) | payer OTHER, SELFPAY ==
--- NOTE | ~2025-06-02 | US_ITS ---
EXAMINATION: US arterial duplex LE RT DATE: 06/02/2025 15:12 INDICATION: Worsening right groin hematoma and possible pseudoaneurysm post cardiac catheterization. TECHNIQUE: Multiple grayscale and Doppler ultrasound images of the right groin were obtained. COMPARISON: None FINDINGS: Normal triphasic waveforms with brisk systolic upstrokes in the right external iliac, common femoral, superficial femoral and deep (profunda) femoral arteries. There are right common femoral, superficial femoral and deep femoral veins are patent and compressible. The right external iliac vein is also patent. There are normal venous waveform images vessel with no arterialization to suggest AV fistula. No evident hematoma or pseudoaneurysm. IMPRESSION: 1. No hematoma, pseudoaneurysm or AV fistula at the right groin. Reviewed, dictated and finalized at location A.
[2025-06-02 13:57] VITALS: BP 133/85; PULSE 74; RESP 16; TEMP 36.8; O2SAT 98
[2025-06-02 14:54] LABS: Hematocrit 40.7 % (42.0-52.0); Hemoglobin 13.4 g/dL (14.0-18.0); Immature Granulocyte Percent A 0.7 % (0-0.5); Lymphocytes Absolute Auto 1.53 K/mm3 (0.9-3.2); Mean Corpuscular HGB Conc 32.9 g/dl (32-36); Mean Corpuscular Hemoglobin 30.8 pg (26-34); Mean Corpuscular Volume 93.6 fl (80-100); Nucleated Red Blood Cells Absolute Auto 0.000 K/mm3 (0.0-0.012); Nucleated Red Blood Cells Perc 0.0 % (0.0-0.2); Platelet Count Result 259 k/mm3 (150-375); Red Blood Count 4.35 M/mm3 (4.6-6.20); White Blood Count 9.2 K/mm3 (4.5-10.0)
[2025-06-02 15:06] LABS: Alanine Aminotransferase 60 U/L (6-50); Albumin Level 3.6 g/dL (3.5-5.1); Alkaline Phosphatase 91 U/L (38-126); Anion Gap 4 mmol/L (4-12); Aspartate Amino Transferase 45 U/L (17-59); Bilirubin,Total 1.0 mg/dL (0.2-1.3); Blood Urea Nitrogen 14 mg/dL (9-20); Calcium 8.9 mg/dL (8.4-10.2); Carbon Dioxide 23 mmol/L (22-30); Chloride 108 mmol/L (98-107); Estimated CRCL calculation 87 ml/min; Estimated Glomerular Filt Rate > 60; Glucose 104 mg/dL (65-110); Potassium 4.0 mmol/L (3.4-5.0); Sodium 135 mmol/L (137-145); Total Protein 6.4 g/dL (6.3-8.2)
[2025-06-02 15:11] LABS: INR 1.1; Partial Thromboplastin Time 29.2 Seconds (22.3-36.8); Prothrombin Time 14.0 Seconds (11.1-14.7)
--- NOTE | 2025-06-02 15:31 | ED.GENADULT ---
HPI - General Adult General Chief complaint: Recheck/Abnormal Lab/Rx Stated complaint: bruising at cardiac cath site Time Seen by Provider: 06/02/25 14:31 History of Present Illness HPI narrative: 5-year-old male per the emergency department for evaluation for worsening ecchymosis at the right groin the site of an Angiocath approximately 1 week ago. Patient denies any worsening swelling but has noticed worsening ecchymosis. Related Data Allergies Allergy/AdvReac Type Severity Reaction Status Date / Time No Known Allergies Allergy Verified 06/02/25 14:01 [facility] Past Medical History Medical History (Updated 06/02/25 @ 15:34 by Shaun Trevino MD) Hyperlipidemia LDL goal <70 Hypertension Family History Family History (Updated 05/26/25 @ 23:06 by Annailsa Rangel RN) Father Pancreatic cancer Mother Alzheimer dementia Hypertension Mother Arthritis Sibling Oral cancer Social History Social History Smoking status: Current every day smoker Tobacco type: smokeless tobacco Second hand tobacco smoke exposure: No Alcohol intake: former Substance use: never Lack of Transportation: No Lack of Food: Never True Current Housing: I Have Housing Concerned About Future Housing: No Difficulty Paying Gas/Electric Bills: No Difficulty Paying for Meds: No Currently Unemployed: No Education: Associate Degree Difficulty w/ Childcare or Family Care: No Spiritual care concerns: No Course Vital Signs Vital signs: Vital Signs Temperature 98.2 F 06/02/25 13:57 Pulse Rate 74 06/02/25 13:57 Respiratory Rate 16 06/02/25 13:57 Blood Pressure 133/85 06/02/25 13:57 Pulse Oximetry 98 06/02/25 13:57 Temperature 98.2 F 06/02/25 13:57 Pulse Rate 74 06/02/25 13:57 Respiratory Rate 16 06/02/25 13:57 Blood Pressure 133/85 06/02/25 13:57 Pulse Oximetry 98 06/02/25 13:57 Medical Decision Making [facility] Narrative Medical decision making narrative: 59-year-old male presents emergency department for evaluation for worsening ecchymosis after recent cardiac catheterization at the right groin. Patient had no palpable hematoma. Patient does have ecchymosis of right groin tracking down the right leg. Patient's hemoglobin is stable. Ultrasound shows no evidence of pseudoaneurysm, hematoma or AV fistula. Suspect the ecchymosis secondary to a resolved hematoma. Patient denies any increased pain at the area. Patient denies any current chest pain or shortness of breath. Patient was well-appearing. Patient was reassured by the workup. Patient family were updated on the results of the workup. All questions were addressed. Patient was discharged home with instructions of close follow-up with his primary care physician. Differential Diagnosis Differential Diagnosis: Hematoma, av fistula, pseudoaneurysm, ecchymosis Vital Signs Vital Signs: Vital Signs Temperature 98.2 F 06/02/25 13:57 Pulse Rate 74 06/02/25 13:57 Respiratory Rate 16 06/02/25 13:57 Blood Pressure 133/85 06/02/25 13:57 Pulse Oximetry 98 06/02/25 13:57 Temperature 98.2 F 06/02/25 13:57 Pulse Rate 74 06/02/25 13:57 Respiratory Rate 16 06/02/25 13:57 Blood Pressure 133/85 06/02/25 13:57 Pulse Oximetry 98 06/02/25 13:57 Lab Data Lab results reviewed: Yes I reviewed the patient's lab results. 06/02/25 14:49 06/02/25 14:49 Labs: Lab Results 06/02/25 Range/Units 14:49 WBC 9.2 (4.5-10.0) K/mm3 RBC 4.35 L (4.6-6.20) M/mm3 Hgb 13.4 L (14.0-18.0) g/dL Hct 40.7 L (42.0-52.0) % MCV 93.6 (80-100) fl MCH 30.8 (26-34) pg MCHC 32.9 (32-36) g/dl RDW 13.2 (11.5-14.5) % Plt Count 259 (150-375) k/mm3 MPV 9.3 (7.4-10.4) fl Immature Gran % (Auto) 0.7 H (0-0.5) % Neut % (Auto) 66.9 (45.5-73.1) % Lymph % (Auto) 16.6 L (18.3-44.2) % Mcculloch % (Auto) 13.2 H (2.6-8.5) % Eos % (Auto) 2.1 (0-4.4) % Baso % (Auto) 0.5 (0.2-1.2) % Lymph # (Auto) 1.53 (0.9-3.2) K/mm3 Mcculloch # (Auto) 1.2 H (0.1-0.6) K/mm3 Eos # (Auto) 0.2 (0-0.3) K/mm3 Baso # (Auto) 0.1 (0.0-0.1) K/mm3 Abs Immat Gran (auto) 0.06 H (0.00-0.031) K/mm3 Absolute Neuts (auto) 6.2 (1.3-6.7) K/mm3 Absolute Nucleated RBC 0.000 (0.0-0.012) K/mm3 Nucleated RBC % 0.0 (0.0-0.2) % PT 14.0 (11.1-14.7) Seconds INR 1.1 APTT 29.2 (22.3-36.8) Seconds Sodium 135 L (137-145) mmol/L Potassium 4.0 (3.4-5.0) mmol/L Chloride 108 H (98-107) mmol/L Carbon Dioxide 23 (22-30) mmol/L Anion Gap 4 (4-12) mmol/L BUN 14 (9-20) mg/dL Creatinine 0.87 (0.7-1.3) mg/dL Estim Creat Clear Calc 87 ml/min Estimated GFR > 60 (59 - ) Glucose 104 (65-110) mg/dL Calcium 8.9 (8.4-10.2) mg/dL Total Bilirubin 1.0 (0.2-1.3) mg/dL AST 45 (17-59) U/L ALT 60 H (6-50) U/L Alkaline Phosphatase 91 (38-126) U/L Total Protein 6.4 (6.3-8.2) g/dL Albumin 3.6 (3.5-5.1) g/dL Imaging Data Radiologist's impression: Impressions Duplex Scan Lower Extremity Artery 06/02/25 15:13 IMPRESSION: 1. No hematoma, pseudoaneurysm or AV fistula at the right groin. Discharge Plan Discharge Clinical Impression: Ecchymosis Patient Disposition: Home Condition: Stable Instructions: Antibiotic Form Additional Instructions: Your ultrasound was negative for pseudoaneurysm, hematoma or AV fistula. Continue to follow your cardiac discharge instructions. Have close follow-up with cardiology. If you have any worsening symptoms then please call or return to the emergency department. Patient Language: Persian Prescriptions: No Action aspirin 81 mg Tablet,Delayed Release (Dr/Ec) 81 mg PO QAM Qty: 90 0RF carvedilol [Coreg] 12.5 mg Tablet 12.5 mg PO Q12HR Qty: 180 0RF ticagrelor [Brilinta] 90 mg Tablet 90 mg PO Q12HR Qty: 180 0RF Jardiance 10 mg Tablet 10 mg PO DAILY Qty: 90 0RF atorvastatin [Lipitor] 80 mg tablet 80 mg PO HS Qty: 90 0RF losartan 50 mg tablet 50 mg PO DAILY Qty: 90 0RF Follow-up/Referrals: Drake,LARISSA Mendieta [Primary Care Provider, Unknown]
--- OUTSIDE RECORDS SUMMARY | 2025-06-02 15:49 | XMS_ITS | Encounter Summary ---
Author Organization [facility] Address [address] [place] [address] Phone Care Team Providers Care Director Validation Name Role Phone Adelso Herron MD Unavailable Netta Juan Primary Care Provider + Yarely Arreola APRN, REJI Unavailable Reason for Visit * Reason Comments Medication Refill Encounter Details Date Type Department Care Team (Late st Contact Info) Description 02/15/2022 Refill [facility] - Neurology [facility] [address] [place] [phone] Adelso Herron MD [address] [place] [address] Medication Refill Social History Tobacco Use Types Packs/Day Years Used Date Smoking Tobacco: Never Smokeless Tobacco: Current Snuff Comments:he states he should he is just unsure currently. Alcohol Use Standard Drinks/Week Comments No 0 (1 standard drink = 0.6 oz pur e alcohol) PHQ-2 Answer Date Recorded Total Score - Questions 1-9 0 11/2020 Sex and Gender Information Value Date Recorded Sex Assigned at Not on file Legal Sex Male 7:08 PM CDT Gender Identity Not on file Sexual Orientation Not on file documented as of this encounter Miscellaneous Notes * Telephone Encounter - Beichler, Ginna N, RN - 02/18/2022 8:24 AM CDT Primidone refill documented in this encounter Plan of Treatment Not on file documented as of this encounter Visit Diagnoses Diagnosis Essential tremor Essential and other specified forms of tremor documented in this encounter Additional Health Concerns Assessment Noted Time PHQ-9 Depression Total Score: 0 10/19/19 21 4:00 PM LINE LOCATOR documented as of this encounter Care Teams Director Validation Relationship Specialty Start Date End Date Netta Juan PAC [address] [place] [address] PCP - General Physician Warehouse Selector 05/13/18 Adelso Herron MD Consulting Physician Neurology 07/06/15 09/03/23 Yarely Arreola APRN, WHARF ATTENDANT [address] [address] Nurse Practitioner Advanced Practice Nurse 10/14/22 documented as of this encounter
--- OUTSIDE RECORDS SUMMARY | 2025-06-02 15:49 | XMS_ITS | Encounter Summary ---
Author Organization [facility] Healthcare Address [address] [place] [address] Care Team Providers Care Director Of Labor Relations Name Role Phone Netta Juan Primary Care Provider [phone] Adelso Herron MD Unavailable [phone] Cesar Hernandez MD Unavailable [phone] Encounter Details Date Type Department Care Team (Late st Contact Info) Description 05/26/2025 Orders Only [facility] Health Information Management [address] [place] [id number] Heraclio Ortega MD [address] [place] [address] Social History Tobacco Use Types Packs/Day Years Used Date Smoking Tobacco: Never Smokeless Tobacco: Current Snuff Alcohol Use Standard Drinks/Week Comments Not Currently 0 (1 standard drink = 0.6 oz pur e alcohol) PHQ-2 Answer Date Recorded PHQ-2 Score 2 04/28/2019 Sex and Gender Information Value Date Recorded Sex Assigned at Not on file Legal Sex Male 9:24 AM DIGITAL ARCHIVIST Gender Identity Not on file Sexual Orientation Not on file 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 on file Not on file Not on claudia e documented as of this encounter Plan of Treatment Not on file documented as of this encounter Procedures Procedure Name Priority Date/Time Associated Diagnosis Comments CARDIOLOGY DOCUMENT SCAN 05/26/2025 documented in this encounter Results * Cardiology Document Scan (05/26/2025) Anatomical Region Laterality Modality Other Heraclio Ortega MD CV CARDIAC SERVICES PROCEDURES E dited Result - Final documented in this encounter Visit Diagnoses Not on filedocumented in this encounter Care Teams Director Of Labor Relations Relationship Specialty Start Date End Date Netta Juan PA [address] [facility] [address] [place] [address] PCP - General School Health Assistant 04/19/19 Adelso Herron MD [address] [facility] [address] [place] [address] Consulting Physician Neurology 04/19/19 Cesar Hernandez MD [address] [facility] [address] [place] [address] Referring Physician Psychiatry 04/19/19 documented as of this encounter
--- OUTSIDE RECORDS SUMMARY | 2025-06-02 15:49 | XMS_ITS | Clinical Summary ---
Author Organization [facility] Address [address] [facility] [place] [address] Phone Care Team Providers Care Women Specialist Name Role Phone Netta Juan Primary Care Provider + Yarely Arreola APRN, SENIOR NETWORK SECURITY ENGINEER Unavailable Allergies No known active allergies Medications aspirin EC 81 MG Tablet Delayed ResponseIndicati ons:Primary hypertension Take 1 Tablet by mouth daily. 2 Active atorvastatin (LIPITOR) 40 MG TabletIndication s:Elevated cholesterol Take 1 Tablet by mouth daily. 90 Tablet 3 3 Active metroNIDAZOLE (METROCREAM) 0.75 % CreamIndications :Rosacea Apply daily. Application Site: topical 45 g 3 3 Active fluticasone (FLONASE) 50 MCG/ACT SuspensionIndica tions:Seasonal allergic rhinitis due to pollen 2 Sprays by Nasal route daily. Use in each nostril as directed. 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 Anxiety 11/09/2015 Medication side effect 11/09/2015 Thyroiditis 09/20/2015 Fatigue 08/13/2015 Medication monitoring encounter 07/06/2015 Essential tremor Coital headache, benign Encounters Date Type Department Care Team Description 03/22/2025 [facility] - [place] [address] [place] [phone] Yarely Arreola, CORK INSULATION INSTALLER, REJI 03/18/2025 Telephone [facility] [address] [place] [phone] Netta Juan, CHERYL Advice Only from Last 3 Months Immunizations Immunization Administration Dates Next Due Covid-19, Mrna, Lnp-s, Pf, 30 Mcg/0.3 Ml Dose (P fizer) 02/27/2021,02/06/2021 DTAP VACCINE 08/17/2013 Family History Medical History Relation Name Comments Cancer Father Rheumatoid Arthritis Mother Relation Name Status Comments Father Mother Alive Social History Tobacco Use Types Packs/Day Years Used Date Smoking Tobacco: Never Smokeless Tobacco: Current Snuff Tobacco Cessation:Ready to Q uit: Yes; Counseling Given: Yes Alcohol Use Standard Drinks/Week Comments No 0 (1 standard drink = 0.6 oz pur e alcohol) PHQ-2 Answer Date Recorded Total Score - Questions 1-9 0 11/2020 Sex and Gender Information Value Date Recorded Sex Assigned at Not on file Legal Sex Male 7:08 PM CDT Gender Identity Not on file Sexual Orientation Not on file Last Filed Vital Signs Vital Sign Reading Time Taken Comments Blood Pressure 134/82 11/25/2022 4:22 PM CDT Pulse 70 11/25/2022 4:22 PM CDT Temperature 36.7 C (98 F) 11/25/2022 4:22 PM CDT Respiratory Rate 16 11/25/2022 4:22 PM CDT Oxygen Saturation 98% 11/25/2022 4:22 PM CDT Inhaled Oxygen Concentration - - Weight 89.6 kg (197 lb 9.6 oz) 11/25/2022 4:22 P M CDT Height 182.9 cm (6') 11/25/2022 4:22 PM CDT Body Mass Index 26.8 11/25/2022 4:22 PM CDT Plan of Treatment Health Maintenance Due Date Last Done Comments Hepatitis C Virus (HCV) Screening 1964 Cologuard 2009 Colonoscopy 2009 Colorectal Cancer Screening 2009 Immunochemical Fecal Occult Blood 2009 Pneumococcal Immunization (5 0+ years) (1 of 1 - PCV) 2014 Zoster Immunization (1 of 2) 2014 Influenza Immunization (#1) 2025 SARS-COV-2 Immunization (3 - season) 2025 02/27/2021, 02/06/2021 Respiratory Syncytial Virus (RSV) Immunization (Adult) (1 - 1-dose 75+ series) 2039 DTaP/Tdap/Td Immunization Discontinued 08/17/2013 PSA Discussion Completed 08/21/2022, 10/15/2020, 03/02/2018 Hepatitis B Immunization Aged Out No longer eligible based on patient's age to complete this topic Human Papillomavirus (HPV) Immunization Aged Out No longer eligible based on patient's age to complete this topic Meningococcal Immunization (ACWY) Aged Out No longer eligible based on patient's age to complete this topic Rotavirus Immunization Aged Out No lo nger eligible based on patient's age to complete this topic Procedures Procedure Name Priority Date/Time Associated Diagnosis Comments XR - CHEST 05/26/2025 12:00 AM CDT PSA SCREEN Routine 08/21/2022 8:40 AM SALT MAKER Prostate cancer screening from Last 3 Months or Most Recently Relevant to Health Maintenance Results * XR - CHEST (05/26/2025 12:00 AM CDT) 05/26/2025 us Provider Scan IMG DIAGNOSTIC ORDERABLES Final Result SCAN * PSA SCREEN (08/21/2022 8:40 AM SALT MAKER) PSA SCREEN, TOTAL 2.28 <=4.00 ng/mL 08/21/2022 1:36 PM SALT MAKER [facility] Blood Venipuncture / Unknown 08/21/2022 8:40 AM SALT MAKER 08/21/2022 8:40 AM SALT MAKER Narrative [facility] - 08/21/2022 1:36 PM SALT MAKER PSA NOTE: The PSA value should be used in conjunction with information available from clinical evaluation and other diagnostic procedures. us Netta Juan PAC CHEMISTRY ORDERABLES Fin al Result [facility] [address] [place] [address] from Last 3 Months or Most Recently Relevant to Health Maintenance Insurance [facility] Care Teams Women Specialist Relationship Specialty Start Date End Date Netta Juan PAC [address] [place] [address] PCP - General Physician Steam Fitter Helper 05/13/18 Yarely Arreola, CORK INSULATION INSTALLER, SENIOR NETWORK SECURITY ENGINEER [address] [address] Nurse Practitioner Advanced Practice Nurse 10/14/22
--- OUTSIDE RECORDS SUMMARY | 2025-06-02 15:49 | XMS_ITS | Clinical Summary ---
Author Organization [facility] Address [address] [place] [address] Care Team Providers Care Personal Protection Specialist Name Role Phone Netta Juan Primary Care Provider [phone] Adelso Herron MD Unavailable [phone] Cesar Hernandez MD Unavailable [phone] Allergies No known active allergies Medications lamoTRIgine (LaMICtal) 100 mg tablet 2 times daily 7 Active primidone (MYSOLINE) 250 mg tablet TAKE 1 TABLET BY MOUTH 3 TIMES DAILY 7 Active acetaminophen (TYLENOL) 325 mg capsule Take by mouth daily 7 Active fluticasone propionate (FLONASE) 50 mcg/actuation nasal sprayIndication s:Acute maxillary sinusitis, recurrence not specified Administer 2 sprays into each nostril daily 16 g 5 0 Active Additional Information Patient not taking.Reported on 06/15/2023 azithromycin (ZITHROMAX) 250 mg tabletIndicatio ns:Strep pharyngitis Take 2 tablets the first day, then 1 tablet daily for 4 days. 6 tablet 1 Active Additional Information Patient not taking.Reported on 09/02/2021 predniSONE (DELTASONE) 20 mg tabletIndicatio ns:Acute maxillary sinusitis, recurrence not specified Take 1 tablet (20 mg) by mouth 2 (two) times a day 10 tablet 3 Active sacubitriL-vals ashlee (ENTRESTO) 24-26 mg tabletIndicatio ns:chronic heart failure Take 1 tablet by mouth 2 (two) times a day 60 tablet 5 Active Jardiance 10 mg tablet Take 1 tablet (10 mg total) by mouth daily 30 tablet 5 5 Active Jardiance 10 mg tablet Take 1 tablet (10 mg total) by mouth daily 5 025 Discontin ued(Reord er) Active Problems Problem Noted Date Diagnosed Date Tremor 04/19/2019 Assessment & Plan (05/06/2019 4:34 PM CDT): - 53 y.o. man with a 10-year history of posture and action tremor of the hands (probable year of onset 2008). His tremor is alcohol-responsive and is accompanied by a positive family history. The tremor has progressed and has become bothersome.He has tried propranolol with no benefit, gabapentin with no benefit, zonisamide with no benefit, and topiramate with side effect (brain fog). He has been advised to consider deep brain stimulation (DBS) but has been too cncenred about this procedure to consider it. - The examination revealed mild posture tremor and moderate action tremor in both hands, along with mild voice tremor. His gait has not been affected and tandem gait was normal. - Falls: no falls. - I agree with the diagnosis of essential tremor. I discussed at length treatment options and his concerns about DBS. I do not believe that further medication trials are likely to yield any appreciable benefit. It is not clear whether primidone is helping at this point. He seemed to have severe anxiety surrounding the topic of DBS. I discussed this anxiety at length with him and suggested that the anxiety might be distorting his judgment about DBS, as his concerns about DBS seemed disproportionate to the recognized risks of this procedure. I suggested that treatment of anxiety might improve his experience of daily life and might help him make a more informed decision about DBS, even if he remains against it. I discussed treatment options for anxiety including psychotherapy and medications. NEUROPSYCHOLOGICAL EVALUATION: INTERPRETATION Normal performance on MMSE; Mildly impaired performance on MoCA. No evidence of depression on GDS; No evidence of depression on HADS. Mild evidence of anxiety on HADS. No evidence of daytime drowsiness on [place] scale. Mild evidence of REM Behavior Disorder (RBD) on Stiasny-Kolster scale. These scores establish a baseline for potential future reference and do not require a change in current plan. PLAN (phrased as addressed to the patient): - I agree with the diagnosis of essential tremor. - I do not think that any further medication adjustments will help you. - If at some point you want to find out whether you still need primidone or what dose you actually need, you can start reducing it by calling my office and I will switch you to a 50 mg tab prescription and start a tapter. - I will refer you to our Occupational Therapy program for Work Hardening Therapy. Someone from OT will contact you - I recommend evaluation for DBS, as we discussed. - If you feel that anxiety is making it difficult to make a balanced decision about DBS, you may consider contacting the [facility] or any other psycholoigst for treatment of anxiety - Call my office if you would like any information about DBS or if you decide to schedule an evaluation. [facility] [place]. ADMINISTRATIVE NOTES (research participation etc.) - Syndrome: tremor - Body part affected at onset: BUE - Body part affected now: BUE - Etiology: essential tremor - Confidence: probable - Age at onset: 43 - Familial: yes - Distance: 45min - Slow gait: no - Pull test score: 0 - Brain Donation Program: not asked - PIB/PAND: N/A - WHIP-PD: N/A Coital headache 07/15/2018 Essential tremor 07/02/2017 Medication side effect 11/09/2015 Thyroiditis 09/20/2015 Fatigue 08/13/2015 Acute maxillary sinusitis 07/25/2015 Overview (11/22/2016): Acute maxillary sinusitis, recurrence not specified Medication monitoring encounter 07/06/2015 Anxiety state 12/31/2013 Overview (11/19/2016): ANXIETY STATE NOS Atopic rhinitis 12/31/2013 Overview (11/21/2016): ALLERGIC RHINITIS NOS Encounters Date Type Department Care Team Description 06/02/2025 Telephone [facility] Cardiology [address] [place] [address] Heraclio Ortega MD Bleeding/Bruising 05/31/2025 Telephone [facility] Cardiology [address] [facility] [address] [place] [address] Heraclio Ortega MD 05/30/2025 Orders Only [facility] Cardiology [address] [place] [address] Heraclio Ortgea MD 05/29/2025 Orders Only [facility] [facility] [address] [place] [address] Moi Sanford MD 05/29/2025 Orders Only [facility] Cardiology [address] [place] [address] Heraclio Ortega MD 05/26/2025 Orders Only [facility] Information Management [address] [place] [address] Heraclio Ortega MD from Last 3 Months Immunizations Immunization Administration Dates Next Due DTaP 08/17/2013 Td, adsorbed 01/15/2007 Surgical History Surgery Date Site/Laterality Comments TONSILLECTOMY 1968 Tonsillectomy VASECTOMY 1992 Vasectomy Medical History Medical History Date Comments Hx Other Medical low back pain Hx Other Medical allerigic rhini tis 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) Family History Medical History Relation Name Comments Depression Father Depression; Pancreatic cancer Father Cancer, pa ncreatic; Tremor Father Relation Name Status Comments Father Social History Tobacco Use Types Packs/Day Years Used Date Smoking Tobacco: Never Smokeless Tobacco: Current Snuff Tobacco Cessation:Ready to Q uit: Not Asked; Counseling Given: Not Answered Alcohol Use Standard Drinks/Week Comments Not Currently 0 (1 standard drink = 0.6 oz pur e alcohol) PHQ-2 Answer Date Recorded PHQ-2 Score 2 04/28/2019 Sex and Gender Information Value Date Recorded Sex Assigned at Not on file Legal Sex Male 9:24 AM INFORMATION SYSTEMS SPECIALIST Gender Identity Not on file Sexual Orientation Not on file 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 Not on file Not on claudia e Obstetrics History Last Filed Vital Signs Vital Sign Reading Time Taken Comments Blood Pressure 122/74 06/15/2023 5:11 PM CDT Pulse 105 06/15/2023 5:11 PM CDT Temperature 36.9 C (98.5 F) 06/15/2023 5:11 PM CDT Respiratory Rate 22 06/15/2023 5:11 PM CDT Oxygen Saturation 98% 06/15/2023 5:11 PM CDT Inhaled Oxygen Concentration - - Weight 88.1 kg (194 lb 3.2 oz) 06/15/2023 5:11 P M CDT Height 182.9 cm (6') 06/15/2023 5:11 PM CDT Body Mass Index 26.34 06/15/2023 5:11 PM CDT Plan of Treatment Health Maintenance Due Date Last Done Comments Colon Cancer Screening-Colonoscopy 1964 Hepatitis C Screening 1964 Prostate Cancer Screening-PSA 1964 Hepatitis B Screening 1982 Regular Well Visit/Exam 18-64 1982 Zoster Vaccine (1 of 2) 2014 Depression Screening 04/28/2020 04/28/2019, 04/19/2019 DTaP/Tdap/Td Vaccine (2 - Tdap) 08/17/2023 08/17/2013, 01/15/2007 Covid-19 Vaccine (3 - 2024-2 6 season) 2025 02/27/2021, 02/06/2021 Influenza Vaccine (#1) 2025 Pneumococcal vaccine <65 Aged Out No longer eligible based on patient's age to complete this topic Procedures Procedure Name Priority Date/Time Associated Diagnosis Comments CARDIOLOGY DOCUMENT SCAN Routine 05/29/2025 4:53 PM CDT CARDIOLOGY DOCUMENT SCAN 05/29/2025 CARDIOLOGY DOCUMENT SCAN Routine 05/28/2025 3:18 PM CDT CARDIOLOGY DOCUMENT SCAN Routine 05/27/2025 3:14 PM CDT CARDIOLOGY DOCUMENT SCAN Routine 05/26/2025 3:12 PM CDT CARDIOLOGY DOCUMENT SCAN 05/26/2025 from Last 3 Months Results * Cardiology Document Scan (05/29/2025 4:53 PM CDT) Anatomical Region Laterality Modality Other us Heraclio Ortega MD CV CARDIAC SERVICES PROCEDURES F inal Result * Cardiology Document Scan (05/29/2025) Anatomical Region Laterality Modality Other Result [facility] us Moi Sanford MD CV CARDIAC SERVICES PROCE DURES Final Result * Cardiology Document Scan (05/28/2025 3:18 PM CDT) Anatomical Region Laterality Modality Other us Moi Sanford MD CV CARDIAC SERVICES PROCE DURES Final Result * Cardiology Document Scan (05/27/2025 3:14 PM CDT) Anatomical Region Laterality Modality Other us Moi Sanford MD CV CARDIAC SERVICES PROCE DURES Final Result * Cardiology Document Scan (05/26/2025 3:12 PM CDT) Anatomical Region Laterality Modality Other Result Heather Ortega MD CV CARDIAC SERVICES PROCEDURES F inal Result * Cardiology Document Scan (05/26/2025) Anatomical Region Laterality Modality Other Result Heather Ortega MD CV CARDIAC SERVICES PROCEDURES E dited Result - Final from Last 3 Months Insurance [facility] CHOICE PLUS [facility] CHOICE PLUS [facility] CHOICE PLUS Care Teams Personal Protection Specialist Relationship Specialty Start Date End Date Netta Juan PA [address] [facility] [address] [address] PCP - General Bean Picker 04/19/19 Adelso Herron MD [address] [facility] [address] [place] [address] Consulting Physician Neurology 04/19/19 Cesar Hernandez MD [address] [facility] [address] [place] [address] Referring Physician Psychiatry 04/19/19
--- OUTSIDE RECORDS SUMMARY | 2025-06-02 15:49 | XMS_ITS | Encounter Summary ---
Author Organization [facility] Address [address] [place] [address] Care Team Providers Care Distributor Sales Consultant Name Role Phone Netta Juan Primary Care Provider [phone] Adelso Herron MD Unavailable [phone] Cesar Hernandez MD Unavailable [phone] Encounter Details Date Type Department Care Team (Late st Contact Info) Description 05/30/2025 Orders Only [facility] Cardiology [address] [place] [address] Heraclio Ortega MD [address] [place] [address] Social History Tobacco Use Types Packs/Day Years Used Date Smoking Tobacco: Never Smokeless Tobacco: Current Snuff Alcohol Use Standard Drinks/Week Comments Not Currently 0 (1 standard drink = 0.6 oz pur e alcohol) PHQ-2 Answer Date Recorded PHQ-2 Score 2 04/28/2019 Sex and Gender Information Value Date Recorded Sex Assigned at Not on file Legal Sex Male 9:24 AM 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 Gender Identity Not on file Sexual Orientation Not on file 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 Not on file Not on claudia e documented as of this encounter Plan of Treatment Not on file documented as of this encounter Procedures Procedure Name Priority Date/Time Associated Diagnosis Comments CARDIOLOGY DOCUMENT SCAN Routine 05/29/2025 4:53 PM CDT documented in this encounter Results * Cardiology Document Scan (05/29/2025 4:53 PM CDT) Anatomical Region Laterality Modality Other Heraclio Ortega MD CV CARDIAC SERVICES PROCEDURES F inal Result documented in this encounter Visit Diagnoses Not on filedocumented in this encounter Care Teams Distributor Sales Consultant Relationship Specialty Start Date End Date Netta Juan PA 2 [facility] [address] [place] [address] PCP - General Cost Estimating Manager 04/19/19 Adelso Herron MD 1 [facility] [address] [place] [address] Consulting Physician Neurology 04/19/19 Cesar Hernandez MD 1 [facility] [address] [place] [address] Referring Physician Psychiatry 04/19/19 documented as of this encounter
--- OUTSIDE RECORDS SUMMARY | 2025-06-02 15:49 | XMS_ITS | Encounter Summary ---
Author Organization [facility] Address [address] [place] [address] Care Team Providers Care Tack Maker Name Role Phone Netta Juan Primary Care Provider [phone] Adelso Herron MD Unavailable [phone] Cesar Hernandez MD Unavailable [phone] Reason for Referral * Medication Prior Authorization - Pending Review Specialty Diagnoses / Procedures Referred By Contac t Referred To Contact Heraclio Ortega MD [address] [place] [address] Phone: tel: fax: Referral ID Status Reason Start Date Expiration Date V isits Requested Visits Authorized [id number] Pending Review 1 1 * Medication Prior Authorization - Pending Review Specialty Diagnoses / Procedures Referred By Contac t Referred To Contact Heraclio Ortega MD [address] [place] [address] Phone: tel: fax: Referral ID Status Reason Start Date Expiration Date V isits Requested Visits Authorized [id number] Pending Review 1 1 Encounter Details Date Type Department Care Team (Late st Contact Info) Description 05/31/2025 Telephone [facility] Cardiology [address] [place] [address] Heraclio Ortega MD [address] [place], [place] [id number] Social History Tobacco Use Types Packs/Day Years Used Date Smoking Tobacco: Never Smokeless Tobacco: Current Snuff Alcohol Use Standard Drinks/Week Comments Not Currently 0 (1 standard drink = 0.6 oz pur e alcohol) PHQ-2 Answer Date Recorded PHQ-2 Score 2 04/28/2019 Sex and Gender Information Value Date Recorded Sex Assigned at Not on file 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 Sex Male 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 Gender Identity Not on file Sexual Orientation Not on file 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 Not on file Not on claudia e documented as of this encounter Ordered Prescriptions Prescription Sig Dispense Quantity Refills Last Filled Start Date End Date Jardiance 10 mg tablet Take 1 tablet (10 mg total) by mouth daily 30 tablet 5 06/02/2025 sacubitriL-valsarta n (ENTRESTO) 24-26 mg tabletIndications:c hronic heart failure Take 1 tablet by mouth 2 (two) times a day 60 tablet 05/31/2025 documented in this encounter Miscellaneous Notes * Addendum Note - Carolann Gonzalez MA - 06/02/2025 1:09 PM CDTAddended by: CAROLANN GONZALEZ on: 06/02/2025 01:09 PM Modules accepted: Orders * Telephone Encounter - Carolann Gonzalez MA - 06/02/2025 1:09 PM CDT Submitted Dave DIAS via [employer]. Awaiting response. * Telephone Encounter - Kiera Toledo - 06/02/2025 10:54 AM CDT Burton (pts spouse) states that a PA is required for Rx Jardiance as well. Please advise. Thank you. Contact [phone] * Telephone Encounter - Carolann Gonzalez MA - 06/01/2025 4:11 PM CDT Entresto PA still pending. * Telephone Encounter - Carolann Gonzalez MA - 05/31/2025 12:27 PM CDT No evidence in chart where a PA has been submitted. Will submit. * Telephone Encounter - Kiera Toledo - 05/31/2025 9:38 AM CDT Pt states that his insurance denied Rx Entresto (generic and name brand). States that they found a coupon for it and would like a script sent to pay out of pocket or an alternative medication. Pleaseadvise. Thank you. Contact [phone] documented in this encounter Plan of Treatment Not on file documented as of this encounter Visit Diagnoses Not on filedocumented in this encounter Discontinued Medications Medication Sig Discontinue Reason Start Date End Da te Jardiance 10 mg tablet Take 1 tablet (10 mg total) by mouth daily Reorder 05/29/2025 06/02/2025 documented as of this encounter Historical Medications * This list may reflect changes made after this encounter. Jardiance 10 mg tablet Take 1 tablet (10 mg total) by mouth daily 05/29/2025 06/02/2025 added in this encounter Care Teams Tack Maker Relationship Specialty Start Date End Date Netta Juan PA 2 [facility] [address] [place] [address] PCP - General Bookbinder Apprentice 04/19/19 Adelso Herron MD [address] [facility] [address] [place] [address] Consulting Physician Neurology 04/19/19 Cesar Hernandez MD [address] [facility] [address] [place] [address] Referring Physician Psychiatry 04/19/19 documented as of this encounter
--- OUTSIDE RECORDS SUMMARY | 2025-06-02 15:49 | XMS_ITS | Encounter Summary ---
Author Organization [facility] Address [address] [place] [address] Care Team Providers Care Publishing Specialist Name Role Phone Netta Juan Primary Care Provider [phone] Adelso Herron MD Unavailable [phone] Cesar Hernandez MD Unavailable [phone] Encounter Details Date Type Department Care Team (Late st Contact Info) Description 05/29/2025 Orders Only [facility] Health Information Management [address] [place] [address] Moi Sanford MD [address] 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 Not on file Not on claudia e documented as of this encounter Plan of Treatment Not on file documented as of this encounter Procedures Procedure Name Priority Date/Time Associated Diagnosis Comments CARDIOLOGY DOCUMENT SCAN 05/29/2025 documented in this encounter Results * Cardiology Document Scan (05/29/2025) Anatomical Region Laterality Modality Other Moi Sanford MD CV CARDIAC SERVICES [facility] Final Result documented in this encounter Visit Diagnoses Not on filedocumented in this encounter Care Teams Publishing Specialist Relationship Specialty Start Date End Date Netta Juan PA 2 [facility] [address] [place] [address] PCP - General Correctional Supervising Cook 04/19/19 Adelso Herron MD 1 [facility] [address] [place] [address] Consulting Physician Neurology 04/19/19 Cesar Hernandez MD 1 [facility] [address] [place] [address] Referring Physician Psychiatry 04/19/19 documented as of this encounter
--- OUTSIDE RECORDS SUMMARY | 2025-06-02 15:49 | XMS_ITS | Clinical Summary ---
Author Organization [facility] Address [address] [place] [address] Care Team Providers Care [employer] Name Role Phone Steven Locke MD Primary Care Provider [phone] Source Comments [facility],non-owned Affiliates and Associated Physician Practices is amultiple site organization consisting of ambulatory clinics and hospital sitesin [place], [place], [place] and [place]. This disclosure is being madepursuant to the Care Everywhere program and may not contain all information available regarding this patient. Last updated 18.[facility] Allergies No known active allergies Medications * This document contains information received from the source organization and may not represent a complete record from that organization. * Be aware that medications may not be up to date on this document. Alwaysverify current medications with the patient. Acetaminophen (TYLENOL) 325 MG CAPS Take by mouth DAILY. 07/02/2017 Active lamoTRIgine (LAMICTAL) 100 MG tablet Take by mouth BID. 07/02/2017 Active primidone (MYSOLINE) 250 MG tablet Take by mouth TID. 08/26/2016 Active Active Problems Problem Noted Date Diagnosed Date Coital headache 07/15/2018 Essential tremor 07/02/2017 Anxiety 11/09/2015 Medication side effect 11/09/2015 Thyroiditis 09/20/2015 Fatigue 08/13/2015 Medication monitoring encounter 07/06/2015 Family History Medical History Relation Name Comments Cancer - Pancreatic Father Cancer - Colon Maternal Uncle Dementia Mother Dementia Paternal Uncle Relation Name Status Comments Father Maternal Uncle Mother Paternal Uncle Social History Tobacco Use Types Packs/Day Years Used Date Smoking Tobacco: Never Smokeless Tobacco: Current Tobacco Cessation:Ready to Q uit: No; Counseling Given: No Alcohol Use Standard Drinks/Week Comments No 0 (1 standard drink = 0.6 oz pur e alcohol) Sex and Gender Information Value Date Recorded Sex Assigned at Not on file Legal Sex Male 5:17 PM GENERAL OPHTHALMOLOGIST Gender Identity Not on file Sexual Orientation Not on file Last Filed Vital Signs Vital Sign Reading Time Taken Comments Blood Pressure 128/79 07/15/2018 8:56 AM GENERAL OPHTHALMOLOGIST Pulse 76 07/15/2018 8:56 AM GENERAL OPHTHALMOLOGIST Temperature 36.2 C (97.1 F) 12/01/2017 9:22 AM CDT Respiratory Rate - - Oxygen Saturation 96% 12/01/2017 9:22 AM CDT Inhaled Oxygen Concentration - - Weight 93 kg (205 lb) 07/15/2018 8:56 AM GENERAL OPHTHALMOLOGIST Height 182.9 cm (6') 07/15/2018 8:56 AM GENERAL OPHTHALMOLOGIST Body Mass Index 27.8 07/15/2018 8:56 AM GENERAL OPHTHALMOLOGIST Plan of Treatment Health Maintenance Due Date Last Done Comments COLOGUARD (AGES 45-75) - COL ON CA SCREENING 1964 COLON MONITORING 1964 COLONOSCOPY - COLON CA SCREENING 1964 CT COLONOGRAPHY - COLON CA SCREENING 1964 Colorectal Cancer Screening 1964 FIT - COLON CA SCREENING 1964 FLEX SIG - COLON CA SCREENING 1964 HIV SCREENING 1979 HEPATITIS C SCREENING 09/22/1982 DTAP/TDAP/TD VACCINES (1 - Tdap) 1983 PNEUMOCOCCAL VACCINE 50+ (1 of 1 - PCV) 2014 ZOSTER VACCINE (1 of 2) 2014 SCREENING FOR DIABETES 12/01/2017 LIPID TESTING 06/21/2023 06/21/2018 DEPRESSION SCREENING 08/17/2024 COVID-19 VACCINE (1 - 2023-2 5 season) 2025 INFLUENZA VACCINE (#1) 2025 Respiratory Syncytial Virus (RSV) Vaccine Pt: or over 60 yrs (1 - 1-dose 75+ series) 2039 HEPATITIS B VACCINE Aged Out No longe r eligible based on patient's age to complete this topic HIB VACCINE Aged Out No longer eligi ble based on patient's age to complete this topic HPV VACCINE Aged Out No longer eligi ble based on patient's age to complete this topic MENINGOCOCCAL (Group B) VACC INE SHARED DECISION-MAKING Aged Out No longer eligibl e based on patient's age to complete this topic MENINGOCOCCAL GROUPS A/C/Y/W VACCINE Aged Out No longer eligible b ased on patient's age to complete this topic Insurance [facility] Care Teams [employer] Relationship Specialty Start Date End Date Steven Locke MD PCP - General 12/01/17
--- OUTSIDE RECORDS SUMMARY | 2025-06-02 15:49 | XMS_ITS | Encounter Summary ---
Author Organization [facility] Healthcare Address [address] [place] [address] Care Team Providers Care Drafting Engineer Name Role Phone Netta Juan Primary Care Provider [phone] Adelso Herron MD Unavailable [phone] Cesar Hernandez MD Unavailable [phone] Reason for Visit * Reason Onset Date Comments Bleeding/Bruising 06/02/2025 Encounter Details Date Type Department Care Team (Late st Contact Info) Description 06/02/2025 Telephone [facility] Medical Group Cardiology [address] [place] [address] Heraclio Ortega MD [address] [facility] [address] [place] [address] Bleeding/Bruising Social History Tobacco Use Types Packs/Day Years Used Date Smoking Tobacco: Never Smokeless Tobacco: Current Snuff Alcohol Use Standard Drinks/Week Comments Not Currently 0 (1 standard drink = 0.6 oz pur e alcohol) PHQ-2 Answer Date Recorded PHQ-2 Score 2 04/28/2019 Sex and Gender Information Value Date Recorded Sex Assigned at Not on file 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 Pt was discharged home on Thursday. Spouse states that pt had a small area of bruising to right groin upon discharge. Bruising has significantly increased in size andis now about 12 inches long. Spouse states that bruising is bright purple and pt c/o increased discomfort. Advised pt have pt go to ER for evaluation. She verbalizes understanding. Will forward to [facility] FYI. * Telephone Encounter - Kiera Toledo - 06/02/2025 10:50 AM CDT Burton (pts spouse) states that the pt just had stents placed by [facility] over the weekend. States that she believes there is excessive bruising around the incision site and she is concerned. Please advise. Thank you. Contact [phone] documented in this encounter Plan of Treatment Not on file documented as of this encounter Visit Diagnoses Not on filedocumented in this encounter Care Teams Drafting Engineer Relationship Specialty Start Date End Date Netta Juan PA [address] [facility] [address] [address] PCP - General Homebound Teacher 04/19/19 Adelso Herron MD [address] [facility] [place] [address] [place] [address] Consulting Physician Neurology 04/19/19 Cesar Hernandez MD [address] [facility] [place] [address] [place] [address] Referring Physician Psychiatry 04/19/19 documented as of this encounter
--- OUTSIDE RECORDS SUMMARY | 2025-06-02 15:49 | XMS_ITS | Encounter Summary ---
Author Organization [facility] Healthcare Address [address] [place] [address] Care Team Providers Care Insurance Commissioner Name Role Phone Netta Juan Primary Care Provider [phone] Adelso Herron MD Unavailable [phone] Cesar Hernandez MD Unavailable [phone] Encounter Details Date Type Department Care Team (Late st Contact Info) Description 05/29/2025 Orders Only [facility] Medical Group Cardiology [address] [place] [address] Heraclio Ortega MD [address] [place] [address] Social History Tobacco Use Types Packs/Day Years Used Date Smoking Tobacco: Never Smokeless Tobacco: Current Snuff Alcohol Use Standard Drinks/Week Comments Not Currently 0 (1 standard drink = 0.6 oz pur e alcohol) PHQ-2 Answer Date Recorded PHQ-2 Score 2 04/28/2019 Sex and Gender Information Value Date Recorded Sex Assigned at Not on file 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 Gender Identity Not on file Sexual Orientation Not on file 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 Not on file Not on claudia e documented as of this encounter Plan of Treatment Not on file documented as of this encounter Procedures Procedure Name Priority Date/Time Associated Diagnosis Comments CARDIOLOGY DOCUMENT SCAN Routine 05/28/2025 3:18 PM CDT CARDIOLOGY DOCUMENT SCAN Routine 05/27/2025 3:14 PM CDT CARDIOLOGY DOCUMENT SCAN Routine 05/26/2025 3:12 PM CDT documented in this encounter Results * Cardiology Document Scan (05/28/2025 3:18 PM CDT) Anatomical Region Laterality Modality Other Moi Sanford MD [facility] CARDIAC SERVICES PROCE DURES Final Result * Cardiology Document Scan (05/27/2025 3:14 PM CDT) Anatomical Region Laterality Modality Other Moi Sanford MD CV CARDIAC SERVICES PROCE DURES Final Result * Cardiology Document Scan (05/26/2025 3:12 PM CDT) Anatomical Region Laterality Modality Other Heraclio Ortega MD [facility] CARDIAC SERVICES PROCEDURES F inal Result documented in this encounter Visit Diagnoses Not on filedocumented in this encounter Care Teams Insurance Commissioner Relationship Specialty Start Date End Date Netta Juan PA [address] [facility] [facility] [address] [place] [address] PCP - General Dispatcher Maintenance Service 04/19/19 Adelso Herron MD [address] [facility] [address] [place] [address] Consulting Physician Neurology 04/19/19 Cesar Hernandez MD [address] [facility] [address] [place] [address] Referring Physician Psychiatry 04/19/19 documented as of this encounter
--- OUTSIDE RECORDS SUMMARY | 2025-06-02 15:49 | XMS_ITS | Encounter Summary ---
Author Organization [facility] Address [address] [place] [address] Phone Care Team Providers Care Client Application Support Engineer Name Role Phone Adelso Herron MD Unavailable [phone] Netta Juan Primary Care Provider + Yarely Arreola APRN, REJI Unavailable Reason for Visit * Reason Comments Medication Refill Encounter Details Date Type Department Care Team (Late st Contact Info) Description 03/15/2021 Refill [facility] - Neurology [facility] [address] [place] [id number] Adelso Herron MD [address] [place] [address] Medication Refill Social History Tobacco [...] on file documented as of this encounter Plan of Treatment Not on file documented as of this encounter Visit Diagnoses Diagnosis Essential tremor Essential and other specified forms of tremor documented in this encounter Additional Health Concerns Assessment Noted Time PHQ-9 Depression Total Score: 0 10/19/19 21 4:00 PM OFFICE CLERK documented as of this encounter Care Teams Client Application Support Engineer Relationship Specialty Start Date End Date Netta Jaun PAC [address] [place] [address] PCP - General Physician Assistant Grocery Store Manager 05/13/18 Adelso Herron MD Consulting Physician Neurology 07/06/15 09/03/23 Yarely Arreola APRN, SALES DEVELOPMENT REPRESENTATIVE [address] [address] Nurse Practitioner Advanced Practice Nurse 10/14/22 documented as of this encounter
== END 2025-06-02 16:32 | disposition home or self-care (01) ==
LOC: ANHED 15:46
PROVIDERS: Emergency Provider Emergency Medicine; PCP Physician Assistant
DX: R58 Hemorrhage, not elsewhere classified (principal); Z98.890 Other specified postprocedural states; E78.5 Hyperlipidemia, unspecified; I10 Essential (primary) hypertension; F17.220 Nicotine dependence, chewing tobacco, uncomplicated
CPT/HCPCS: 36415; 80053; 85025; 85610; 85730; 93926; 99284